=== PATIENT | female | born 1965 | race Caucasian/White ===

== ENCOUNTER → 2019-11-25 | Outpatient (CLI) | payer BC ==
--- NOTE | 2019-11-25 13:54 | Diagnostic Imaging Report ---
PROCEDURE: US right lower extremity venous. TECHNIQUE: Multiple real-time grayscale images were obtained over the right lower extremity in various projections. Additional spectral analysis and color Doppler duplex images were also obtained. INDICATION: Leg pain and swelling. COMPARISON: There are no prior studies available for comparison. FINDINGS: There is generally good blood flow and compressibility at all levels of the deep venous system. There is no evidence for a deep venous thrombosis. IMPRESSION: There is no evidence for a deep venous thrombosis of the right lower extremity. Dictated by: Dictated on workstation # [id number]
== END ==
LOC: RAD 13:09
PROVIDERS: ATTEND Nurse Practitioner Family
DX: M79.661 Pain in right lower leg (principal); M79.89 Other specified soft tissue disorders

== ENCOUNTER → 2020-07-20 | Outpatient (CLI) | payer BC ==
--- NOTE | 2020-07-20 16:31 | Diagnostic Imaging Report ---
INDICATION: Routine screening. COMPARISON: 02/06/2016 and 02/03/2015. TECHNIQUE: 2D and 3D bilateral screening mammography was performed with CAD. FINDINGS: Scattered fibroglandular densities are identified bilaterally. There are benign parenchymal and vascular calcifications bilaterally. No mass or malignant appearing microcalcifications are seen. The axillae are unremarkable. IMPRESSION: No mammographic features suspicious for malignancy are identified. ACR BI-RADS Category 2: Benign findings. Result letter will be mailed to the patient. Note: At least 10% of breast cancer is not imaged by mammography. Dictated by: Dictated on workstation # [id number]
== END ==
LOC: RAD 10:30
PROVIDERS: ATTEND Nurse Practitioner Family
DX: Z12.31 Encounter for screening mammogram for malignant neoplasm of breast (principal)
CPT/HCPCS: 77063; 77067

== ENCOUNTER → 2021-07-13 | Outpatient (CLI) | payer BC ==
--- NOTE | 2021-07-13 13:37 | Diagnostic Imaging Report ---
INDICATION: Cough. COMPARISON: None available. TECHNIQUE: Frontal and lateral radiographs of the chest dated July 13, 2021. FINDINGS: The cardiac silhouette is within normal limits in size. No significant pulmonary vascular congestion. The lungs are clear of focal pulmonary opacity. No pleural effusion. No pneumothorax. No acute osseous abnormality. IMPRESSION: No acute cardiopulmonary abnormality. Dictated by: Dictated on workstation # [id number]
== END ==
LOC: RAD 12:24
PROVIDERS: ATTEND Family Medicine
DX: R05.9 Cough, unspecified (principal)
CPT/HCPCS: 71046

== ENCOUNTER → 2021-07-27 | Outpatient (CLI) | payer BC ==
--- NOTE | 2021-07-27 09:52 | Diagnostic Imaging Report ---
INDICATION: Routine screening. COMPARISON is made with prior mammograms 07/20/2020 and 02/06/2016. 2-D and 3-D bilateral screening mammography was performed with CAD. Scattered fibroglandular densities are identified bilaterally. The parenchymal pattern is stable. No mass or malignant-appearing microcalcifications are seen. Benign parenchymal and vascular calcifications again noted. Axillae are unremarkable. IMPRESSION: BI-RADS Category 2 No mammographic features suspicious for malignancy are identified. ACR BI-RADS Category 2: Benign findings. Result letter will be mailed to the patient. Note: At least 10% of breast cancer is not imaged by mammography. Dictated by: Dictated on workstation # [id number]
== END ==
LOC: RAD 07:45
PROVIDERS: ATTEND Family Medicine
DX: Z12.31 Encounter for screening mammogram for malignant neoplasm of breast (principal)
CPT/HCPCS: 77063; 77067

== ENCOUNTER 2021-08-11 05:33 | Outpatient (RCR) | payer BC ==
[~2021-08-11] VITALS: Ht 165.1 cm; Wt 126.2 kg
[~2021-08-11 05:33] MED LIST: BUPR300T98 PO; BUSP5TAB59 PO; CETI10CA PO; CYAN500T44 PO; FOLI1TAB33 PO; MAGN100T5 PO; METF-397 PO; MTP25TSR PO; MULT-1136 PO; VITA200C60 PO
== END 2021-08-11 11:49 | disposition home or self-care (01) ==
LOC: PREOP 05:33
PROVIDERS: ATTEND Surgery
DX: Z01.812 Encounter for preprocedural laboratory examination (principal); K29.50 Unspecified chronic gastritis without bleeding; Z20.822 Contact with and (suspected) exposure to COVID-19
CPT/HCPCS: 87635

== ENCOUNTER 2021-08-14 07:27 | Day surgery (SDC) | payer BC ==
[~2021-08-14] VITALS: Ht 165.1 cm; Wt 126.2 kg
--- OUTSIDE RECORDS SUMMARY | 2021-08-14 07:31 | XMS REPORT | CCD ---
Author Author Renate Landeros Organization Marlys Miller MD, [facility] Address [address] [place] [address] Phone Care Team Providers Care Statistical Assistant Name Role Phone Marlys Miller PP Unavailable CCM Unavailable Summary Purpose Interface Exchange Insurance Providers Payer name Policy type / Coverage type Covered constitution party ID Effective Begin Date Effective End Date [facility] [id number] Unknown Family history Runs in the family Diagnosis Age At Onset Cancer Unknown Colon cancer Unknown Diabetes mellitus Type 2 Unknown Multiple myeloma Unknown Breast cancer Unknown Leukemia Unknown Mother Diagnosis Age At Onset Hypertension Unknown Arthritis Unknown Diabetes mellitus Type 2 Unknown Brother Diagnosis Age At Onset Hypertension Unknown Father Diagnosis Age At Onset Arthritis Unknown Social History Social History Element Codes Description Effective Dates Marital status Unknown Single 03/31/2019 Employment Unknown Currently employed [employer] 03/31/[address]: 776811074 Never smoker 03/31/[address]: 482153017 Never drinks alcohol 2018 Has the patient ever used illegal drugs? Unknown Has nev er used illegal drugs 03/31/2019 Allergies, Adverse Reactions, Alerts Substance Reaction Codes Entered Date Inactivated Date Status NO KNOWN DRUG ALLERGIES Unknown 03/31/2019 No Inactive Date Active Problems Condition Codes Effective Dates Condition Status Essential (primary) hypertension ICD-10: I10 ICD-9: 401.1 03/31/2019 Active Type 2 diabetes mellitus without complications ICD-10: E11.9 ICD-9: 250.00 03/31/2019 Active Change in mole ICD-10: D22.9 ICD-9: 216.9 07/13/2020 Active Restless leg syndrome ICD-10: G25.81 ICD-9: 333.94 07/13/2020 Active Generalized anxiety disorder ICD-10: F41.1 ICD-9: 300.00 03/31/2019 Active Major depressive disorder, single episode, moderate IC D-10: F32.1 ICD-9: 296.22 03/31/2019 Active Cellulitis of right leg ICD-10: L03.115 ICD-9: 682.6 11/25/2019 Active Influenza ICD-10: J11.1 ICD-9: 487.1 11/25/2019 Active Diabetes Unknown 03/31/2019 Active Other obesity due to excess calories ICD-10: E66.09 ICD-9: 278.00 03/31/2019 Active Medications Medication Codes Instructions Start Date Stop Date Status Fill Instructions buspirone 5 mg tablet RxNorm: 088268 TAKE 1 TABLET BY MOUTH THR EE TIMES DAILY 07/14/2021 07/14/2021 Inactive metoprolol succinate ER 25 mg tablet,extended release 24 hr RxNorm: 339646 TAKE 1 TABLET BY MOUTH EVERY DAY 07/14/2021 10/11/2021 Active Wellbutrin XL 300 mg 24 hr tablet, extended release RxNorm: 916466 TAKE 1 TABLET BY MOUTH EVERY DAY 07/14/2021 10/11/2021 Active Wellbutrin XL 300 mg 24 hr tablet, extended release RxNorm: 068792 TAKE 1 TABLET BY MOUTH EVERY DAY 07/14/2021 07/14/2021 Inactive metoprolol succinate ER 25 mg tablet,extended release 24 hr RxNorm: 523435 TAKE 1 TABLET BY MOUTH EVERY DAY 07/14/2021 07/14/2021 Inactive buspirone 5 mg tablet RxNorm: 011482 TAKE 1 TABLET BY MOUTH THR EE TIMES DAILY 07/14/2021 10/11/2021 Active pantoprazole 40 mg tablet,delayed release RxNorm: 455941 Take 1 Tablet(s) Oral as directed 1 tab twice daily x 3 weeks then daily thereafter 07/13/2021 12/09/2021 Active metformin 500 mg tablet RxNorm: 824847 Take 1 Tablet(s) Oral th ree times a day 07/13/2021 01/08/2022 Active metoprolol succinate ER 25 mg tablet,extended release 24 hr RxNorm: 673175 TAKE 1 TABLET BY MOUTH EVERY DAY 05/09/2021 05/09/2021 Inactive Wellbutrin XL 300 mg 24 hr tablet, extended release RxNorm: 751355 TAKE 1 TABLET BY MOUTH EVERY DAY 02/10/2021 05/10/2021 Inactive metoprolol succinate ER 25 mg tablet,extended release 24 hr RxNorm: 171348 TAKE 1 TABLET BY MOUTH EVERY DAY 02/09/2021 02/09/2021 Inactive buspirone 5 mg tablet RxNorm: 947482 TAKE 1 TABLET BY MOUTH THR EE TIMES DAILY 02/09/2021 02/09/2021 Inactive Wellbutrin XL 300 mg 24 hr tablet, extended release RxNorm: 070109 TAKE 1 TABLET BY MOUTH EVERY DAY 02/09/2021 02/09/2021 Inactive metformin 500 mg tablet RxNorm: 227226 TAKE 1 TABLET BY MOUTH T WICE DAILY 02/09/2021 07/12/2021 Inactive triamcinolone acetonide 0.025 % topical cream RxNorm: 128581 4 1 Application Topical two times a day 07/13/2020 No Stop Date Active ketoconazole 2 % topical cream RxNorm: 030264 1 Applica tion Topical two times a day 07/13/2020 No Stop Date Active metoprolol succinate ER 25 mg tablet,extended release 24 hr RxNorm: 742244 1 Tablet(s) Oral every day 01/18/2020 01/12/2021 Inactive metformin 500 mg tablet RxNorm: 042614 1 Tablet(s) Oral two jaleesa es a day 01/18/2020 01/12/2021 Inactive Wellbutrin XL 300 mg 24 hr tablet, extended release RxNorm: 782576 1 Tablet(s) Oral every day 01/18/2020 01/12/2021 Inactive buspirone 5 mg tablet RxNorm: 803032 1 Tablet(s) Oral three jaleesa es a day 01/18/2020 01/12/2021 Inactive metoprolol succinate ER 25 mg tablet,extended release 24 hr RxNorm: 104022 1 Tablet(s) Oral every day 01/13/2020 01/17/2020 Inactive metformin 500 mg tablet RxNorm: 400251 1 Tablet(s) Oral two jaleesa es a day 01/13/2020 01/17/2020 Inactive Wellbutrin XL 300 mg 24 hr tablet, extended release RxNorm: 143888 1 Tablet(s) Oral every day 01/13/2020 01/17/2020 Inactive buspirone 5 mg tablet RxNorm: 516109 1 Tablet(s) Oral three jaleesa es a day 01/13/2020 01/17/2020 Inactive doxycycline hyclate 100 mg capsule RxNorm: 5567719 1 Cap mirta(s) Oral two times a day 11/25/2019 12/05/2019 Inactive Tamiflu 75 mg capsule RxNorm: 489476 1 Capsule(s) Oral two time s a day 11/25/2019 11/30/2019 Inactive triamcinolone acetonide 0.025 % topical cream RxNorm: 705775 4 1 Application Topical two times a day 07/14/2019 01/12/2020 Inactive buspirone 5 mg tablet RxNorm: 371328 1 Tablet(s) Oral three jaleesa es a day 07/14/2019 08/13/2019 Inactive Wellbutrin XL 300 mg 24 hr tablet, extended release RxNorm: 853991 1 Tablet(s) Oral every day 07/14/2019 01/12/2020 Inactive metformin 500 mg tablet RxNorm: 605908 1 Tablet(s) Oral two jaleesa es a day 07/14/2019 01/12/2020 Inactive metoprolol succinate ER 25 mg tablet,extended release 24 hr RxNorm: 000629 1 Tablet(s) PO daily 04/28/2019 01/12/2020 Inactive metformin 500 mg tablet RxNorm: 375966 1 Tablet(s) PO daily 019 07/13/2019 Inactive Wellbutrin SR 150 mg tablet, 12 hr sustained-release RxNorm: 556942 1 Tablet(s) PO BID 04/28/2019 07/10/2019 Inactive bupropion HCl 75 mg tablet RxNorm: 453673 1 Tablet(s) PO BID 201804/21/2019 Inactive B12 sublingual RxNorm: 10013 sublingual 03/31/2019 Active Vitamin D (with calcium) oral RxNorm: 175394 oral 03/31/2019 Active Multivitamin 50 Plus oral RxNorm: 72304 oral 03/31/2019 Active magnesium RxNorm: 1 Tablet(s) PO daily 03/31/2019 Active biotin oral RxNorm: 1588 oral 03/31/2019 Active Medication Administered No Medication Administered data Immunizations No Immunization data Results Observation Observation Code Item Item Code Result Date S ervice Location Comp Metabolic Rws765 NA 138 mEq/L 07/07/2021 Unkn own Comp Metabolic Zvt146 K 4.1 mEq/L 07/07/2021 Unkn own Comp Metabolic Vsb921 CL 101 mEq/L 07/07/2021 Unkn own Comp Metabolic Wci574 CO2 29.0 mEq/L 07/07/2021 Unk nown Comp Metabolic Btx966 ANION GAP 12 07/07/2021 Unkn own Comp Metabolic Jiy215 GLUCOSE 171 mg/dL 07/07/2021 Unkn own Comp Metabolic Azs320 Creat 0.9 mg/dL 07/07/2021 Unkn own Comp Metabolic Uwr022 eGFR 70 ml/min/1.73m2 07/07/20 21 Unknown Comp Metabolic Iuq764 BUN 13 mg/dL 07/07/2021 Unkn own Comp Metabolic Yhf180 B/C Ratio 14.8 Ratio 07/07/2021 Unk nown Comp Metabolic Zou968 CALCIUM 9.0 mg/dL 07/07/2021 Unkn own Comp Metabolic Kcw209 ALK PHOS 102 U/L 07/07/2021 Unkn own Comp Metabolic Wfu082 AST(SGOT) 20 U/L 07/07/2021 Unkn own Comp Metabolic Zvu640 ALT(SGPT) 18 U/L 07/07/2021 Unkn own Comp Metabolic Erm360 BILI T 0.7 mg/dL 07/07/2021 Unkn own Comp Metabolic Lhr517 ALBUMIN 4.1 g/dL 07/07/2021 Unkn own Comp Metabolic Cab807 TPRO 6.7 g/dL 07/07/2021 Unkn own Comp Metabolic Cie644 GLOB 2.6 g/dL 07/07/2021 Unkn own Comp Metabolic Jgi842 A/G Ratio 1.6 Ratio 07/07/2021 Unkn own Comp Metabolic Pff215 Osmo 280 mOsmo 07/07/2021 Unkn own Cbc With Differential Ord2 WBC 6.42 K/ul 07/06/20 Unknown Cbc With Differential Ord2 RBC 4.63 M/ul 07/06/20 21 Unknown Cbc With Differential Ord2 HGB 13.2 g/dl 07/06/20 21 Unknown Cbc With Differential Ord2 HCT 40.9 % 07/06/20 Unknown Cbc With Differential Ord2 Neut% 61.9 % 07/06/20 21 Unknown Cbc With Differential Ord2 MCV 88.3 fl 07/06/20 21 Unknown Cbc With Differential Ord2 Lymph% 29.0 % 07/06/20 Unknown Cbc With Differential Ord2 MCH 28.5 pg 07/06/20 Unknown Cbc With Differential Ord2 [place]% 6.2 % 07/06/20 Unknown Cbc With Differential Ord2 MCHC 32.3 pg 07/06/20 Unknown Cbc With Differential Ord2 Eos% 2.6 % 07/06/20 Unknown Cbc With Differential Ord2 Baso% 0.3 % 07/06/20 Unknown Cbc With Differential Ord2 PLT 214 K/ul 07/06/20 Unknown Cbc With Differential Ord2 Neut ABS# 3.97 K/ul 07/06/20 Unknown Cbc With Differential Ord2 RDW 13.4 % 07/06/20 Unknown Cbc With Differential Ord2 Lymph ABS# 1.86 K/ul 021 Unknown Cbc With Differential Ord2 [place] ABS# 0.4 K/ul 07/06/20 Unknown Cbc With Differential Ord2 Eos ABS# 0.2 K/ul 07/06/20 Unknown Cbc With Differential Ord2 Baso ABS# 0.0 K/ul 07/06/20 Unknown Lipid Ord30 CHOL 212 mg/dL 07/06/2021 Unknown Lipid Ord30 HDL 58.0 mg/dl 07/06/2021 Unknown Lipid Ord30 TRIG 144 mg/dL 07/06/2021 Unknown Lipid Ord30 LDL 125 mg/dL 07/06/2021 Unknown Lipid Ord30 C/HDL 3.7 Ratio 07/06/2021 Unknown Tsh Ord6 TSH (3rd IS) 3.85 uIU/mL 07/06/2021 Unkn own %Hba1C Xeu449 % HbA1c 89106-8 8.1 % 07/06/2021 Unknown %Hba1C Sto228 Gluc Ave 186 mg/dL 07/06/2021 Unknown %Hba1C Fvv059 % HbA1c 52546-4 6.6 % 07/07/2020 Unknown %Hba1C Lsc874 Gluc Ave 143 mg/dL 07/07/2020 Unknown Comp Metabolic Mus905 NA 138 mEq/L 07/07/2020 Unkn own Comp Metabolic Tsa794 K 3.9 mEq/L 07/07/2020 Unkn own Comp Metabolic Kme415 CL 101 mEq/L 07/07/2020 Unkn own Comp Metabolic Xty846 CO2 29.0 mEq/L 07/07/2020 Unk nown Comp Metabolic Obk070 ANION GAP 12 07/07/2020 Unkn own Comp Metabolic Awt769 GLUCOSE 127 mg/dL 07/07/2020 Unkn own Comp Metabolic Jel367 Creat 0.8 mg/dL 07/07/2020 Unkn own Comp Metabolic Vxz367 eGFR 75 ml/min/1.73m2 07/07/20 20 Unknown Comp Metabolic Wlu615 BUN 12 mg/dL 07/07/2020 Unkn own Comp Metabolic Imk012 B/C Ratio 14.5 Ratio 07/07/2020 Unk nown Comp Metabolic Ugb711 CALCIUM 9.7 mg/dL 07/07/2020 Unkn own Comp Metabolic Tje494 ALK PHOS 103 U/L 07/07/2020 Unkn own Comp Metabolic Ith562 AST(SGOT) 16 U/L 07/07/2020 Unkn own Comp Metabolic Wdj656 ALT(SGPT) 16 U/L 07/07/2020 Unkn own Comp Metabolic Rzk631 BILI T 0.9 mg/dL 07/07/2020 Unkn own Comp Metabolic Nuf276 ALBUMIN 4.0 g/dL 07/07/2020 Unkn own Comp Metabolic Stp811 TPRO 6.6 g/dL 07/07/2020 Unkn own Comp Metabolic For352 GLOB 2.6 g/dL 07/07/2020 Unkn own Comp Metabolic Fsp346 A/G Ratio 1.5 Ratio 07/07/2020 Unkn own Comp Metabolic Tle847 Osmo 277 mOsmo 07/07/2020 Unkn own Tsh Ord6 TSH (3rd IS) 2.43 uIU/mL 07/07/2020 Unkn own Lipid Ord30 CHOL 213 mg/dL 07/07/2020 Unknown Lipid Ord30 HDL 61.0 mg/dl 07/07/2020 Unknown Lipid Ord30 TRIG 134 mg/dL 07/07/2020 Unknown Lipid Ord30 LDL 125 mg/dL 07/07/2020 Unknown Lipid Ord30 C/HDL 3.5 Ratio 07/07/2020 Unknown Cbc With Differential Ord2 WBC 5.38 K/ul 07/07/20 Unknown Cbc With Differential Ord2 RBC 4.51 M/ul 07/07/20 Unknown Cbc With Differential Ord2 HGB 13.6 g/dl 07/07/20 Unknown Cbc With Differential Ord2 Neut% 63.0 % 07/07/20 Unknown Cbc With Differential Ord2 HCT 41.1 % 07/07/20 Unknown Cbc With Differential Ord2 MCV 91.1 fl 07/07/20 Unknown Cbc With Differential Ord2 Lymph% 30.1 % 07/07/20 Unknown Cbc With Differential Ord2 MCH 30.2 pg 07/07/20 Unknown Cbc With Differential Ord2 [place]% 4.8 % 07/07/20 Unknown Cbc With Differential Ord2 MCHC 33.1 pg 07/07/20 Unknown Cbc With Differential Ord2 Eos% 1.9 % 07/07/20 Unknown Cbc With Differential Ord2 PLT 192 K/ul 07/07/20 Unknown Cbc With Differential Ord2 Baso% 0.2 % 07/07/20 Unknown Cbc With Differential Ord2 Neut ABS# 3.39 K/ul 07/07/20 Unknown Cbc With Differential Ord2 RDW 12.7 % 07/07/20 Unknown Cbc With Differential Ord2 Lymph ABS# 1.62 K/ul 020 Unknown Cbc With Differential Ord2 [place] ABS# 0.3 K/ul 07/07/20 Unknown Cbc With Differential Ord2 Eos ABS# 0.1 K/ul 07/07/20 Unknown Cbc With Differential Ord2 Baso ABS# 0.0 K/ul 07/07/20 Unknown Comp Metabolic Muo844 NA 140 mEq/L 07/07/2019 Unkn own Comp Metabolic Mjh242 K 3.9 mEq/L 07/07/2019 Unkn own Comp Metabolic Dfz925 CL 102 mEq/L 07/07/2019 Unkn own Comp Metabolic Gol221 CO2 30.0 mEq/L 07/07/2019 Unk nown Comp Metabolic Yiq224 ANION GAP 12 07/07/2019 Unkn own Comp Metabolic Vrk766 GLUCOSE 150 mg/dL 07/07/2019 Unkn own Comp Metabolic Ape415 Creat 0.8 mg/dL 07/07/2019 Unkn own Comp Metabolic Oox314 eGFR 79 ml/min/1.73m2 07/07/20 19 Unknown Comp Metabolic Pxk614 BUN 12 mg/dL 07/07/2019 Unkn own Comp Metabolic Ixi590 B/C Ratio 15.0 Ratio 07/07/2019 Unk nown Comp Metabolic Ndy932 CALCIUM 9.4 mg/dL 07/07/2019 Unkn own Comp Metabolic Bff219 ALK PHOS 114 U/L 07/07/2019 Unkn own Comp Metabolic Pvb098 AST(SGOT) 20 U/L 07/07/2019 Unkn own Comp Metabolic Njh521 ALT(SGPT) 18 U/L 07/07/2019 Unkn own Comp Metabolic Vgt118 BILI T 1.0 mg/dL 07/07/2019 Unkn own Comp Metabolic Rnz237 ALBUMIN 4.0 g/dL 07/07/2019 Unkn own Comp Metabolic Hat371 TPRO 6.5 g/dL 07/07/2019 Unkn own Comp Metabolic Mxh915 GLOB 2.5 g/dL 07/07/2019 Unkn own Comp Metabolic Jxi660 A/G Ratio 1.6 Ratio 07/07/2019 Unkn own Comp Metabolic Jzg294 Osmo 282 mOsmo 07/07/2019 Unkn own %Hba1C Ghu918 % HbA1c 48314-1 7.4 % 07/07/2019 Unknown %Hba1C Pyh493 Gluc Ave 166 mg/dL 07/07/2019 Unknown Cbc With Differential Ord2 WBC 5.82 K/ul 03/31/20 19 Unknown Cbc With Differential Ord2 RBC 4.69 M/ul 03/31/20 19 Unknown Cbc With Differential Ord2 HGB 13.9 g/dl 03/31/20 19 Unknown Cbc With Differential Ord2 HCT 41.8 % 03/31/20 19 Unknown Cbc With Differential Ord2 Neut% 64.5 % 03/31/20 19 Unknown Cbc With Differential Ord2 MCV 89.1 fl 03/31/20 19 Unknown Cbc With Differential Ord2 Lymph% 27.3 % 03/31/20 19 Unknown Cbc With Differential Ord2 MCH 29.6 pg 03/31/20 19 Unknown Cbc With Differential Ord2 [place]% 5.8 % 03/31/20 19 Unknown Cbc With Differential Ord2 MCHC 33.3 pg 03/31/20 19 Unknown Cbc With Differential Ord2 Eos% 2.2 % 03/31/20 19 Unknown Cbc With Differential Ord2 PLT 193 K/ul 03/31/20 19 Unknown Cbc With Differential Ord2 Baso% 0.2 % 03/31/20 19 Unknown Cbc With Differential Ord2 RDW 13.4 % 03/31/20 19 Unknown Cbc With Differential Ord2 Neut ABS# 3.75 K/ul 03/31/20 19 Unknown Cbc With Differential Ord2 Lymph ABS# 1.59 K/ul 019 Unknown Cbc With Differential Ord2 [place] ABS# 0.3 K/ul 03/31/20 19 Unknown Cbc With Differential Ord2 Eos ABS# 0.1 K/ul 03/31/20 19 Unknown Cbc With Differential Ord2 Baso ABS# 0.0 K/ul 03/31/20 19 Unknown Lipid Ord30 CHOL 188 mg/dL 03/31/2019 Unknown Lipid Ord30 HDL 57.0 mg/dl 03/31/2019 Unknown Lipid Ord30 TRIG 137 mg/dL 03/31/2019 Unknown Lipid Ord30 LDL 104 mg/dL 03/31/2019 Unknown Lipid Ord30 C/HDL 3.3 Ratio 03/31/2019 Unknown Tsh Ord6 TSH (3rd IS) 2.93 uIU/mL 03/31/2019 Unkn own Comp Metabolic Rea525 NA 138 mEq/L 03/31/2019 Unkn own Comp Metabolic Fte909 K 4.1 mEq/L 03/31/2019 Unkn own Comp Metabolic Nsp364 CL 100 mEq/L 03/31/2019 Unkn own Comp Metabolic Hxo928 CO2 31.0 mEq/L 03/31/2019 Unk nown Comp Metabolic Gts019 ANION GAP 11 03/31/2019 Unkn own Comp Metabolic Cny402 GLUCOSE 157 mg/dL 03/31/2019 Unkn own Comp Metabolic Buo336 Creat 0.7 mg/dL 03/31/2019 Unkn own Comp Metabolic Nkq104 eGFR 89 ml/min/1.73m2 03/31/20 19 Unknown Comp Metabolic Kbg258 BUN 11 mg/dL 03/31/2019 Unkn own Comp Metabolic Nzf442 B/C Ratio 15.3 Ratio 03/31/2019 Unk nown Comp Metabolic Ezj259 CALCIUM 9.4 mg/dL 03/31/2019 Unkn own Comp Metabolic Krx011 ALK PHOS 113 U/L 03/31/2019 Unkn own Comp Metabolic Mrp395 AST(SGOT) 19 U/L 03/31/2019 Unkn own Comp Metabolic Sax498 ALT(SGPT) 19 U/L 03/31/2019 Unkn own Comp Metabolic Qkk141 BILI T 1.1 mg/dL 03/31/2019 Unkn own Comp Metabolic Ril714 ALBUMIN 4.0 g/dL 03/31/2019 Unkn own Comp Metabolic Nqa377 TPRO 6.5 g/dL 03/31/2019 Unkn own Comp Metabolic Prn477 GLOB 2.5 g/dL 03/31/2019 Unkn own Comp Metabolic Cfu737 A/G Ratio 1.6 Ratio 03/31/2019 Unkn own Comp Metabolic Tbj205 Osmo 278 mOsmo 03/31/2019 Unkn own %Hba1C Xvo407 % HbA1c 26872-8 7.9 % 03/31/2019 Unknown %Hba1C Rmw716 Gluc Ave 180 mg/dL 03/31/2019 Unknown Procedures No Procedures data Vital Signs Date Vital 07/13/2020 Blood Pressure 1: 142/88 Code: 8480-6 BMI: 43.9 Code: 76650-0 Heart Rate 1: 86 bpm Height: 5'5" Code: 8302-2 SpO2: 98% Temperature: 3 6.9 (C) / 98.4 (F) Weight: 264 lbs Code: 87216-2 01/13/2020 Blood Pressure 1: 124/80 Code: 8480-6 BMI: 43.9 Code: 96281-5 Heart Rate 1: 75 bpm Height: 5'5" Code: 8302-2 SpO2: 96% Temperature: 3 6.6 (C) / 97.8 (F) Weight: 264 lbs Code: 30637-8 11/25/2019 Blood Pressure 1: 150/78 Code: 8480-6 BMI: 44.6 Code: 68137-4 Heart Rate 1: 80 bpm Height: 5'5" Code: 8302-2 SpO2: 95% Temperature: 3 6.6 (C) / 97.8 (F) Weight: 268 lbs Code: 98037-8 07/14/2019 Blood Pressure 1: 146/82 Code: 8480-6 BMI: 46.6 Code: 17501-4 Heart Rate 1: 75 bpm Height: 5'5" Code: 8302-2 SpO2: 97% Weight: 280 lb s Code: 11670-5 04/28/2019 Blood Pressure 1: 142/82 Code: 8480-6 BMI: 46.6 Code: 02414-3 Heart Rate 1: 88 bpm Height: 5'5" Code: 8302-2 SpO2: 97% Weight: 280 lb s Code: 66241-9 03/31/2019 Blood Pressure 1: 144/90 Code: 8480-6 BMI: 46.9 Code: 95752-4 Heart Rate 1: 82 bpm Height: 5'5" Code: 8302-2 SpO2: 98% Weight: 282 lb s Code: 49376-3 Functional Status No Functional Status data Reason For Visit Reason For Visit Effective Dates Notes depression 07/13/2020 depression 01/13/2020 fever 11/25/2019 depression 07/14/2019 depression 04/28/2019 depression 03/31/2019 Encounters Encounter Performer Location Codes Date 25510 EST. PATIENT, LEVEL IV Diagnosis: Essential (primary) hypertension[ICD10: I10] Diagnosis: Type 2 diabetes mellitus without complications[ICD10: E11.9] Diagnosis: Change in mole[ICD10: D22.9] Diagnosis: Restless leg syndrome[ICD10: G25.81] Noemí Miller MD, [facility] CPT-4: 90006 07/13/2020 17187 EST. PATIENT, LEVEL III Diagnosis: Generalized anxiety disorder[ICD10: F41.1] Diagnosis: Major depressive disorder, single episode, moderate[ICD10: F32.1] Diagnosis: Essential (primary) hypertension[ICD10: I10] Diagnosis: Type 2 diabetes mellitus without complications[ICD10: E11.9] Noemí Miller MD, [facility] CPT-4: 38255 01/13/2020 54557 EST. PATIENT, LEVEL III Diagnosis: Influenza[ICD10: J11.1] Diagnosis: Cellulitis of right leg[ICD10: L03.115] Noemí Miller MD, [facility] CPT-4: 79643 11/25/2019 17686 EST. PATIENT, LEVEL IV Diagnosis: Generalized anxiety disorder[ICD10: F41.1] Diagnosis: Major depressive disorder, single episode, moderate[ICD10: F32.1] Diagnosis: Type 2 diabetes mellitus without complications[ICD10: E11.9] Diagnosis: Essential (primary) hypertension[ICD10: I10] Noemí Miller MD, [facility] CPT-4: 51258 07/14/2019 50445 EST. PATIENT, LEVEL IV Diagnosis: Generalized anxiety disorder[ICD10: F41.1] Diagnosis: Major depressive disorder, single episode, moderate[ICD10: F32.1] Diagnosis: Type 2 diabetes mellitus without complications[ICD10: E11.9] Diagnosis: Essential (primary) hypertension[ICD10: I10] Noemí Miller MD, [facility] CPT-4: 19099 04/28/2019 OFFICE VISIT, NEW - LEVEL 4 Diagnosis: Essential (primary) hypertension[ICD10: I10] Diagnosis: Type 2 diabetes mellitus without complications[ICD10: E11.9] Diagnosis: Generalized anxiety disorder[ICD10: F41.1] Diagnosis: Major depressive disorder, single episode, moderate[ICD10: F32.1] Diagnosis: Other obesity due to excess calories[ICD10: E66.09] Noemí Miller MD, [facility] CPT-4: 29678 03/31/2019 Plan of Care Planned Activity Notes Codes Status Date Appointment: [id number] ([facility] min) Moderate 07/13/2021 Patient Education: Patient Medication Summary Completed 07/05/2021 Visit Plan: Restless Leg Syndrome - unco ntrolled symptoms - I have recommended pt to start on a low dose of iron two to three times a week - to take with orange juice. Pt is to alert me if the symptoms do not improve and we will start on a medication such as mirapex or requip. Changing mole - will refer to dermatology - pt is notify clinic with any changes, questions, or concerns. Hypertension - well controlled - continue with current medications, continue with no added salt diet. Pt has been encouraged to exercise daily. The pt has been advised to call the office if there are any acute concerns about change in blood pressure readings at home. Diabetes Mellitus - controlled - per recent FSBS reports. I have recommended for the patient to have follow up labs prior to the next office visit. The patient has been instructed to continue with current medications as previously directed, continue with regular FSBS monitoring to assure continued control of diabetes. Pt to call for any acute concerns, complaints, or if the blood glucose readings are starting to become less controlled. 07/13/2020 Appointment: [id number] ([facility] Complex 07/13/2020 Patient Education: Patient Medication Summary Completed 07/13/2020 Patient Education: Diabetes Completed 07/13/2020 Patient Education: Patient Medication Summary Completed 07/07/2020 Visit Plan: Chronic Depression and anxie ty - the pt has symptoms of chronic anxiety and depression that have been fairly well controlled since the last office visit. The pt has expected periods of exacerbation with abatement of the symptoms with change in situational exposure. No change in current medications. Hypertension - well controlled - continue with current medications, continue with no added salt diet. Pt has been encouraged to exercise daily. The pt has been advised to call the office if there are any acute concerns about change in blood pressure readings at home. Diabetes Mellitus - controlled - per recent FSBS reports. I have recommended for the patient to have follow up labs prior to the next office visit. The patient has been instructed to continue with current medications as previously directed, continue with regular FSBS monitoring to assure continued control of diabetes. Pt to call for any acute concerns, complaints, or if the blood glucose readings are starting to become less controlled. 01/13/2020 Appointment: Noemí Landeros WPtel: [phone] [id number] (30 min) Complex 01/13/2020 Patient Education: Patient Medication Summary Completed 01/13/2020 Patient Education: Depression Completed 01/13/2020 Patient Education: Diabetes Completed 01/13/2020 Visit Plan: Influenza - pt started on ta miflu - pt to start on anti- inflammatories, tylenol and monitor symptoms. Pt to call if not improving. Pt to alert any close contacts as to illness. Cellulitis - continue with oral antibiotics as previously directed, return to clinic as previously directed, call for acute change in symptoms, worsening redness, warmth, discharge. 11/25/2019 Appointment: Noemí Landeros WPtel: [phone] [id number] (30 min) Complex 11/25/2019 Patient Education: Patient Medication Summary Completed 11/25/2019 Care Plan: VASCULAR STUDY [facility] : [address]- 0 Pending 11/25/2019 Visit Plan: Chronic Depression and anxie ty - the pt has symptoms of chronic anxiety and depression that have been fairly well controlled since the last office visit. The pt has expected periods of exacerbation with abatement of the symptoms with change in situational exposure. No change in current medications. Hypertension - well controlled - continue with current medications, continue with no added salt diet. Pt has been encouraged to exercise daily. The pt has been advised to call the office if there are any acute concerns about change in blood pressure readings at home. Diabetes Mellitus - I have recommended for the patient to have follow up labs prior to the next office visit. The patient has been instructed to continue with current medications as previously directed, continue with regular FSBS monitoring to assure continued control of diabetes. Pt to call for any acute concerns, complaints, or if the blood glucose readings are starting to become less controlled. I have recommended for the patient to fo llow more strictly to the diabetic diet as discussed in clinic to allow for greater blood glucose control. 07/14/2019 [id number] [facility] 07/14/2019 Patient Education: Patient Medication Summary Completed 07/14/2019 Patient Education: Depression Completed 07/14/2019 Patient Education: Diabetes Completed 07/14/2019 Visit Plan: Chronic Depression and anxie ty - the pt has symptoms of chronic anxiety and depression that have been fairly well controlled since the last office visit. The pt has expected periods of exacerbation with abatement of the symptoms with change in situational exposure. Hypertension - uncontrolled - the patient's medications have been modified as documented in the visit note. The patient has been counseled to cut back on salt in diet for a no added salt diet, low fat diet, start an exercise program with low weight bearing exercises and higher aerobic activity for heart health. The patient is to check blood pressure readings as an outpatient and either fax, call, or email the readings to the office next week for practitioner to review. The pt is to call for acute concerns. Diabetes Mellitus - Uncontrolled - per recent FSBS reports. I have recommended for the patient to have follow up labs prior to the next office visit. The patient has been instructed to continue with current medications as previously directed, continue with regular FSBS monitoring to assure continued control of diabetes. Pt to call for any acute concerns, complaints, or if the blood glucose readings are starting to become less controlled. I have recommended for the patient to follow more strictly to the diabetic diet as discussed in clinic to allow for greater blood glucose control. 04/28/2019 App[facility]ment: [id number] [facility] 04/28/2019 Patient Education: Patient Medication Summary Completed 04/28/2019 Patient Education: Diabetes Completed 04/28/2019 Patient Education: Depression Completed 04/28/2019 Visit Plan: Anxiety - the patient has un controlled anxiety and will benefit from an SSRI on a daily basis to attempt control of the symptoms of anxiety (tachycardia, overwhelming sensations, stress, insomnia, etc). Pt is aware of the risks and benefits of treatment with the above medications. Depression - uncontrolled - Pt has been counseled about the diagnosis of depression, the potential causes, and risks associated with the diagnosis. The pt denies suicidal ideation, or plans. The patient has been counseled about treatment options, and understands the risks associated with treatment of depression, as well as the risks associated with NOT treating the depression. I believe the pt will benefit from medical intervention and an antidepressant has been appropriately prescribed for this patient. Obesity - chronic issue with this patient. The pt has been counseled about diet changes, calorie restriction, and need to exercise. Pt will RTC in one month for weight check. Hypertension - The patient has been counseled to cut back on salt in diet for a no added salt diet, low fat diet, start an exercise program with low weight bearing exercises and higher aerobic activity for heart health. The patient is to check blood pressure readings as an outpatient and either fax, call, or email the readings to the office next week for practitioner to review. The pt is to call for acute concerns. cough, Esophageal Reflux - the patient has been counseled against excessive intake of caffeine, spicy foods, peppermint, and cinnamon - all of which can exacerbate esophageal reflux. The patient is to take medications as prescribed and call the office if the symptoms are not improving. Allergies - chronic - recommended pt to use allergy medication as prescribed. Pt has been counseled as to the appropriate use of the medication. Pt to call if allergy symptoms are not controlled with the medication. If using nasal spray, instructions as follows: Nasal spray- use twice daily, one spray per nostril twice daily, after 30 minutes, rinse out nose with saline spray.. Use opposite hand per nostril to spray in the nasal steroid allergy spray. Diabetes Mellitus - The patient has been instructed to continue with current medications as p reviously directed, continue with regular FSBS monitoring to assure continued control of diabetes. Pt to call for any acute concerns, complaints, or if the blood glucose readings are starting to become less controlled. I have recommended for the patient to follow more strictly to the diabetic diet as discussed in clinic to allow for greater blood glucose control. 03/31/2019 Appointment: [facility]em[id number] [facility] 03/31/2019 Patient Education: Patient Medication Summary Completed 03/31/2019 Patient Education: Diabetes Completed 03/31/2019 Patient Education: Depression Completed 03/31/2019 Patient Education: Obesity Completed 0 03/31/2019 Instructions Comment will send orders for mammogram - call to schedule - at [facility] Get some magnesium and folate over the counter to see if it helps with cramps - you an also try tonic water if no improvement we will consider restless leg medicine refer to Dr. Page will send steroid cream and fungal cream to pharmacy. Restless Leg Syndrome - uncontrolled symptoms - I have recommended pt to start on a low dose of iron two to three times a week - to take with orange juice. Pt is to alert me if the symptoms do not improve and we will start on a medication such as mirapex or requip. Changing mole - will refer to dermatology - pt is notify clinic with any changes, questions, or concerns. Hypertension - well controlled - continue with current medications, continue with no added salt diet. Pt has been encouraged to exercise daily. The pt has been advised to call the office if there are any acute concerns about change in blood pressure readings at home. Diabetes Mellitus - controlled - per recent FSBS reports. I have recommended for the patient to have follow up labs prior to the next office visit. The patient has been instructed to continue with current medications as previously directed, continue with regular FSBS monitoring to assure continued control of diabetes. Pt to call for any acute concerns, complaints, or if the blood glucose readings are starting to become less controlled. . Chronic Depression and anxiety - the p t has symptoms of chronic anxiety and depression that have been fairly well controlled since the last office visit. The pt has expected periods of exacerbation with abatement of the symptoms with change in situational exposure. No change in current medications. Hypertension - well controlled - continue with current medications, continue with no added salt diet. Pt has been encouraged to exercise daily. The pt has been advised to call the office if there are any acute concerns about change in blood pressure readings at home. Diabetes Mellitus - controlled - per recent FSBS reports. I have recommended for the patient to have follow up labs prior to the next office visit. The patient has been instructed to continue with current medications as previously directed, continue with regular FSBS monitoring to assure continued control of diabetes. Pt to call for any acute concerns, complaints, or if the blood glucose readings are starting to become less controlled. will check DVT ultrasound to make sure t here is no clot will start you on doxycycline and tamiflu let me know if you are not feeling any better or with any changes, questions or concerns. . Influenza - pt started on tamiflu - pt to start on anti- inflammatories, tylenol and monitor symptoms. Pt to call if not improving. Pt to alert any close contacts as to illness. Cellulitis - continue with oral antibiotics as previously directed, return to clinic as previously directed, call for acute change in symptoms, worsening redness, warmth, discharge. . Chronic Depression and anxiety - the p t has symptoms of chronic anxiety and depression that have been fairly well controlled since the last office visit. The pt has expected periods of exacerbation with abatement of the symptoms with change in situational exposure. No change in current medications. Hypertension - well controlled - continue with current medications, continue with no added salt diet. Pt has been encouraged to exercise daily. The pt has been advised to call the office if there are any acute concerns about change in blood pressure readings at home. Diabetes Mellitus - I have recommended for the patient to have follow up labs prior to the next office visit. The patient has been instructed to continue with current medications as previously directed, continue with regular FSBS monitoring to assure continued control of diabetes. Pt to call for any acute concerns, complaints, or if the blood glucose readings are starting to become less controlled. I have recommended for the patient to follow more strictly to the diabetic diet as discussed in clinic to allow for greater blood glucose control. . Chronic Depression and anxiety - the p t has symptoms of chronic anxiety and depression that have been fairly well controlled since the last office visit. The pt has expected periods of exacerbation with abatement of the symptoms with change in situational exposure. Hypertension - uncontrolled - the patient's medications have been modified as documented in the visit note. The patient has been counseled to cut back on salt in diet for a no added salt diet, low fat diet, start an exercise program with low weight bearing exercises and higher aerobic activity for heart health. The patient is to check blood pressure readings as an outpatient and either fax, call, or email the readings to the office next week for practitioner to review. The pt is to call for acute concerns. Diabetes Mellitus - Uncontrolled - per recent FSBS reports. I have recommended for the patient to have follow up labs prior to the next office visit. The patient has been instructed to continue with current medications as previously directed, continue with regular FSBS monitoring to assure continued control of diabetes. Pt to call for any acute concerns, complaints, or if the blood glucose readings are starting to become less controlled. I have recommended for the patient to follow more strictly to the diabetic diet as discussed in clinic to allow for greater blood glucose control. . Anxiety - the patient has uncontrolled anxiety and will benefit from an SSRI on a daily basis to attempt control of the symptoms of anxiety (tachycardia, overwhelming sensations, stress, insomnia, etc). Pt is aware of the risks and benefits of treatment with the above medications. Depression - uncontrolled - Pt has been counseled about the diagnosis of depression, the potential causes, and risks associated with the diagnosis. The pt denies suicidal ideation, or plans. The patient has been counseled about treatment options, and understands the risks associated with treatment of depression, as well as the risks associated with NOT treating the depression. I believe the pt will benefit from medical intervention and an antidepressant has been appropriately prescribed for this patient. Obesity - chronic issue with this patient. The pt has been counseled about diet changes, calorie restriction, and need to exercise. Pt will RTC in one month for weight check. Hypertension - The patient has been counseled to cut back on salt in diet for a no added salt diet, low fat diet, start an exercise program with low weight bearing exercises and higher aerobic activity for heart health. The patient is to check blood pressure readings as an outpatient and either fax, call, or email the readings to the office next week for practitioner to review. The pt is to call for acute concerns. cough, Esophageal Reflux - the patient has been counseled against excessive intake of caffeine, spicy foods, peppermint, and cinnamon - all of which can exacerbate esophageal reflux. The patient is to take medications as prescribed and call the office if the symptoms are not improving. Allergies - chronic - recommended pt to use allergy medication as prescribed. Pt has been counseled as to the appropriate use of the medication. Pt to call if allergy symptoms are not controlled with the medication. If using nasal spray, instructions as follows: Nasal spray- use twice daily, one spray per nostril twice daily, after 30 minutes, rinse out nose with saline spray.. Use opposite hand per nostril to spray in the nasal steroid allergy spray. Diabetes Mellitus - The patient has been instructed to continue with current medications as previously directed, continue with regular FSBS monitoring to assure continued control of diabetes. Pt to call for any acute concerns, complaints, or if the blood glucose readings are starting to become less controlled. I have recommended for the patient to follow more strictly to the diabetic diet as discussed in clinic to allow for greater blood glucose control. Medical Equipment No Medical Equipment data Health Concerns Section Health Concerns data not found Goals Section Goals data not found Interventions Section Interventions data not found Health Status Evaluations/Outcomes Section Health Status Evaluations/Outcomes data not found Advance Directives No Advance Directive data
--- OUTSIDE RECORDS SUMMARY | 2021-08-14 07:31 | XMS REPORT | Clinical Summary ---
Author Author [facility] Organization [facility] Address Unknown Phone Unavailable Care Team Providers Care Senior Supply Chain Analyst Name Role Phone Anna Mazariegos RN Unavailable Unavailable Wayne Mcdonough MD PCP Source Comments Some departments are not documenting in the electronic medical record. If you d o not see the information that you expected, contact Release of Information in [facility] Information Management department at [phone] for further assistan ce in locating additional records.[facility] Allergies Not on File Medications End Date Status Medication Sig Dispensed Refills Start Date Active MULTIVITAMIN PO Take by 0 mouth. Active pyridoxine (VITAMIN B-6) Take 100 mg 0 100 mg PO tablet by mouth daily. Active other medication 1 Dose. 0 Active METFORMIN HCL (METFORMIN Take by 0 PO) mouth. Active BUPROPION HCL (WELLBUTRIN Take by 0 PO) mouth. Active AMILORIDE HCL (AMILORIDE Take by 0 PO) mouth. Active CALCIUM PO Take by 0 mouth. Active CHOLECALCIFEROL (VITAMIN Take by 0 D3) (D-3-5 PO) mouth. Active ondansetron (ZOFRAN) 4 mg Take 1 Tab by 10 Tab 0 PO tablet mouth every 8 1 hours as needed for Nausea. Active Problems Not on file Medical History Medical History Date Comments Hypertension DM (diabetes mellitus) (HCC) Social History Date Tobacco Use Types Packs/Day Years Used Never Smoker Comments Alcohol Use Standard Drinks/Week No 0 (1 standard drink = 0.6 o z pure alcohol) Sex Assigned at Date Recorded Not on file Last Filed Vital Signs Reading Time Taken Comments Vital Sign 132/81 02/06/2011 5:06 AM CDT Blood Pressure 79 02/06/2011 5:06 AM CDT Pulse 36.7 C (98.1 F) 02/05/2011 11:05 PM CDT Temperature - - Respiratory Rate 92% 02/06/2011 5:06 AM CDT Oxygen Saturation - - Inhaled Oxygen Concentration - - Weight - - Height - - Body Mass Index Plan of Treatment Health Maintenance Due Date Last Done Comments HIV SCREENING 1978 DTAP/TDAP VACCINES (1 - 1981 Tdap) HEPATITIS C SCREENING 1981 PHYSICAL (COMPREHENSIVE) 1981 EXAM CERVICAL CANCER SCREENING 1984 BREAST CANCER SCREENING 2003 COLORECTAL CANCER 2013 SCREENING SHINGLES RECOMBINANT 2013 VACCINE (1 of 2) INFLUENZA VACCINE 04/16/2021 Results Not on filefrom Last 3 Months Care Teams Start Date End Date Senior Supply Chain Analyst Relationship Specialty 02/06/11 Wayne Mcdonough MD PCP - General [id number] [facility] [address] [place] [address] 02/05/11 Yair, AUREA Castillo Emergency Medicine
--- OUTSIDE RECORDS SUMMARY | 2021-08-14 07:31 | XMS REPORT | CCD ---
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 Name Role Phone Marlys Miller PP Unavailable CCM Unavailable Summary Purpose Interface Exchange Insurance Providers Payer name Policy type / Coverage type Covered green party ID Effective Begin Date Effective End Date [facility] Commercial Insurance [id number] Unknown Unknown Family history Runs in the family Diagnosis Age At Onset Cancer Unknown Colon cancer Unknown Diabetes mellitus Type 2 Unknown Breast cancer Unknown Mother Diagnosis Age At Onset Hypertension Unknown Arthritis Unknown Diabetes mellitus Type 2 Unknown Brother Diagnosis Age At Onset Hypertension Unknown Father Diagnosis Age At Onset Arthritis Unknown Social History Social History Element Codes Description Effective Dates Marital status Unknown Single 03/31/2019 Employment Unknown Currently employed [employer] 03/31/[address]: 012129345 Never smoker 03/31/[address]: 519664128 Never drinks alcohol 2018 Has the patient [...] Start Date Stop Date Status Fill Instructions metoprolol succinate ER 25 mg tablet,extended release 24 hr RxNorm: 967344 TAKE 1 TABLET BY MOUTH EVERY DAY 05/09/2021 08/06/2021 Active Wellbutrin XL 300 mg 24 hr tablet, extended release RxNorm: 690181 TAKE 1 TABLET BY MOUTH EVERY DAY 02/10/2021 05/10/2021 Inactive buspirone 5 mg tablet RxNorm: 512562 TAKE 1 TABLET BY MOUTH THR EE TIMES DAILY 02/09/2021 08/07/2021 Active Wellbutrin XL 300 mg 24 hr tablet, extended release RxNorm: 185546 TAKE 1 TABLET BY MOUTH EVERY DAY 02/09/2021 08/07/2021 Active metformin 500 mg tablet RxNorm: 525202 TAKE 1 TABLET BY MOUTH T WICE DAILY 02/09/2021 08/07/2021 Active metoprolol succinate ER 25 mg tablet,extended release 24 hr RxNorm: 260758 TAKE 1 TABLET BY MOUTH EVERY DAY 02/09/2021 02/09/2021 Inactive triamcinolone acetonide 0.025 % topical cream RxNorm: 883451 4 1 Application Topical two times a day 07/13/2020 No Stop Date Active ketoconazole 2 % topical cream RxNorm: 575539 1 Applica tion Topical two times a day 07/13/2020 No Stop Date Active metoprolol succinate ER 25 mg tablet,extended release 24 hr RxNorm: 553234 1 Tablet(s) Oral every day 01/18/2020 01/12/2021 Inactive metformin 500 mg tablet RxNorm: 974516 1 Tablet(s) Oral two jaleesa es a day 01/18/2020 01/12/2021 Inactive Wellbutrin XL 300 mg 24 hr tablet, extended release RxNorm: 648273 1 Tablet(s) Oral every day 01/18/2020 01/12/2021 Inactive buspirone 5 mg tablet RxNorm: 523383 1 Tablet(s) Oral three jaleesa es a day 01/18/2020 01/12/2021 Inactive metoprolol succinate ER 25 mg tablet,extended release 24 hr RxNorm: 731569 1 Tablet(s) Oral every day 01/13/2020 01/17/2020 Inactive metformin 500 mg tablet RxNorm: 449791 1 Tablet(s) Oral two jaleesa es a day 01/13/2020 01/17/2020 Inactive Wellbutrin XL 300 mg 24 hr tablet, extended release RxNorm: 359769 1 Tablet(s) Oral every day 01/13/2020 01/17/2020 Inactive buspirone 5 mg tablet RxNorm: 780487 1 Tablet(s) Oral three jaleesa es a day 01/13/2020 01/17/2020 Inactive doxycycline hyclate 100 mg capsule RxNorm: 8280844 1 Cap mirta(s) Oral two times a day 11/25/2019 12/05/2019 Inactive Tamiflu 75 mg capsule RxNorm: 014898 1 Capsule(s) Oral two time s a day 11/25/2019 11/30/2019 Inactive triamcinolone acetonide 0.025 % topical cream RxNorm: 689355 4 1 Application Topical two times a day 07/14/2019 01/12/2020 Inactive buspirone 5 mg tablet RxNorm: 985120 1 Tablet(s) Oral three jaleesa es a day 07/14/2019 08/13/2019 Inactive Wellbutrin XL 300 mg 24 hr tablet, extended release RxNorm: 405183 1 Tablet(s) Oral every day 07/14/2019 01/12/2020 Inactive metformin 500 mg tablet RxNorm: 530343 1 Tablet(s) Oral two jaleesa es a day 07/14/2019 01/12/2020 Inactive metoprolol succinate ER 25 mg tablet,extended release 24 hr RxNorm: 625464 1 Tablet(s) PO daily 04/28/2019 01/12/2020 Inactive metformin 500 mg tablet RxNorm: 920567 1 Tablet(s) PO daily 019 07/13/2019 Inactive Wellbutrin SR 150 mg tablet, 12 hr sustained-release RxNorm: 860341 1 Tablet(s) PO BID 04/28/2019 07/10/2019 Inactive bupropion HCl 75 mg tablet RxNorm: 084763 1 Tablet(s) PO BID 201804/21/2019 Inactive B12 sublingual RxNorm: 33278 sublingual 03/31/2019 Active Vitamin D (with calcium) oral RxNorm: 321571 oral 03/31/2019 Active Multivitamin 50 Plus oral RxNorm: 34265 oral 03/31/2019 Active magnesium RxNorm: 1 Tablet(s) PO daily 03/31/2019 Active biotin oral RxNorm: 1588 oral 03/31/2019 Active Medication Administered No Medication Administered data Immunizations No Immunization data Results Observation Observation Code Item Item Code Result Date S ervice Location %Hba1C Xdf727 % HbA1c 63188-7 6.6 % 07/07/2020 Unknown %Hba1C Igu225 Gluc Ave 143 mg/dL 07/07/2020 Unknown Comp Metabolic Eno511 NA 138 mEq/L 07/07/2020 Unkn own Comp Metabolic Hla162 K 3.9 mEq/L 07/07/2020 Unkn own Comp Metabolic Ddq793 CL 101 mEq/L 07/07/2020 Unkn own Comp Metabolic Yjd449 CO2 29.0 mEq/L 07/07/2020 Unk nown Comp Metabolic Uhh787 ANION GAP 12 07/07/2020 Unkn own Comp Metabolic Ciz114 GLUCOSE 127 mg/dL 07/07/2020 Unkn own Comp Metabolic Fbc397 Creat 0.8 mg/dL 07/07/2020 Unkn own Comp Metabolic Whp687 eGFR 75 ml/min/1.73m2 07/07/20 20 Unknown Comp Metabolic Bwz522 BUN 12 mg/dL 07/07/2020 Unkn own Comp Metabolic Ito513 B/C Ratio 14.5 Ratio 07/07/2020 Unk nown Comp Metabolic Kmw343 CALCIUM 9.7 mg/dL 07/07/2020 Unkn own Comp Metabolic Kdi912 ALK PHOS 103 U/L 07/07/2020 Unkn own Comp Metabolic Ags841 AST(SGOT) 16 U/L 07/07/2020 Unkn own Comp Metabolic Cry423 ALT(SGPT) 16 U/L 07/07/2020 Unkn own Comp Metabolic Anw729 BILI T 0.9 mg/dL 07/07/2020 Unkn own Comp Metabolic Nvu957 ALBUMIN 4.0 g/dL 07/07/2020 Unkn own Comp Metabolic Tuy240 TPRO 6.6 g/dL 07/07/2020 Unkn own Comp Metabolic Fbp768 GLOB 2.6 g/dL 07/07/2020 Unkn own Comp Metabolic Ygq365 A/G Ratio 1.5 Ratio 07/07/2020 Unkn own Comp Metabolic Zyf697 Osmo 277 mOsmo 07/07/2020 Unkn own Tsh [...] pg 07/07/20 Unknown Cbc With Differential Ord2 [place]% 4.8 % 07/07/20 Unknown Cbc With Differential [...] K/ul 020 Unknown Cbc With Differential Ord2 [place] ABS# 0.3 K/ul 07/07/20 Unknown Cbc With Differential Ord2 Eos ABS# 0.1 K/ul 07/07/20 Unknown Cbc With Differential Ord2 Baso ABS# 0.0 K/ul 07/07/20 20 Unknown Comp Metabolic Fra638 NA 140 mEq/L 07/07/2019 Unkn own Comp Metabolic Gph395 K 3.9 mEq/L 07/07/2019 Unkn own Comp Metabolic Kkk342 CL 102 mEq/L 07/07/2019 Unkn own Comp Metabolic Wla497 CO2 30.0 mEq/L 07/07/2019 Unk nown Comp Metabolic Oly468 ANION GAP 12 07/07/2019 Unkn own Comp Metabolic Cju767 GLUCOSE 150 mg/dL 07/07/2019 Unkn own Comp Metabolic Sey865 Creat 0.8 mg/dL 07/07/2019 Unkn own Comp Metabolic Cpm857 eGFR 79 ml/min/1.73m2 07/07/20 19 Unknown Comp Metabolic Zwj935 BUN 12 mg/dL 07/07/2019 Unkn own Comp Metabolic Jrz503 B/C Ratio 15.0 Ratio 07/07/2019 Unk nown Comp Metabolic Iua431 CALCIUM 9.4 mg/dL 07/07/2019 Unkn own Comp Metabolic Odn031 ALK PHOS 114 U/L 07/07/2019 Unkn own Comp Metabolic Eyi050 AST(SGOT) 20 U/L 07/07/2019 Unkn own Comp Metabolic Goo128 ALT(SGPT) 18 U/L 07/07/2019 Unkn own Comp Metabolic Rbb274 BILI T 1.0 mg/dL 07/07/2019 Unkn own Comp Metabolic Sez178 ALBUMIN 4.0 g/dL 07/07/2019 Unkn own Comp Metabolic Qis082 TPRO 6.5 g/dL 07/07/2019 Unkn own Comp Metabolic Krf428 GLOB 2.5 g/dL 07/07/2019 Unkn own Comp Metabolic Sii226 A/G Ratio 1.6 Ratio 07/07/2019 Unkn own Comp Metabolic Yjv034 Osmo 282 mOsmo 07/07/2019 Unkn own %Hba1C Mnh610 % HbA1c 42608-1 7.4 % 07/07/2019 Unknown %Hba1C Ucs436 Gluc Ave 166 mg/dL 07/07/2019 Unknown Cbc [...] 03/31/20 19 Unknown Cbc With Differential Ord2 [place]% 5.8 % 03/31/20 19 Unknown Cbc With [...] K/ul 019 Unknown Cbc With Differential Ord2 [place] ABS# 0.3 K/ul 03/31/20 19 Unknown Cbc [...] 2.93 uIU/mL 03/31/2019 Unkn own Comp Metabolic Zui624 NA 138 mEq/L 03/31/2019 Unkn own Comp Metabolic Gtt990 K 4.1 mEq/L 03/31/2019 Unkn own Comp Metabolic Yhp191 CL 100 mEq/L 03/31/2019 Unkn own Comp Metabolic Vuw544 CO2 31.0 mEq/L 03/31/2019 Unk nown Comp Metabolic Mga124 ANION GAP 11 03/31/2019 Unkn own Comp Metabolic Ewg698 GLUCOSE 157 mg/dL 03/31/2019 Unkn own Comp Metabolic Pyd731 Creat 0.7 mg/dL 03/31/2019 Unkn own Comp Metabolic Ohl423 eGFR 89 ml/min/1.73m2 03/31/20 19 Unknown Comp Metabolic Lqp525 BUN 11 mg/dL 03/31/2019 Unkn own Comp Metabolic Ufq535 B/C Ratio 15.3 Ratio 03/31/2019 Unk nown Comp Metabolic Eiz837 CALCIUM 9.4 mg/dL 03/31/2019 Unkn own Comp Metabolic Klr693 ALK PHOS 113 U/L 03/31/2019 Unkn own Comp Metabolic Nqq235 AST(SGOT) 19 U/L 03/31/2019 Unkn own Comp Metabolic Ech391 ALT(SGPT) 19 U/L 03/31/2019 Unkn own Comp Metabolic Qig376 BILI T 1.1 mg/dL 03/31/2019 Unkn own Comp Metabolic Opb906 ALBUMIN 4.0 g/dL 03/31/2019 Unkn own Comp Metabolic Iih427 TPRO 6.5 g/dL 03/31/2019 Unkn own Comp Metabolic Xlz398 GLOB 2.5 g/dL 03/31/2019 Unkn own Comp Metabolic Oka395 A/G Ratio 1.6 Ratio 03/31/2019 Unkn own Comp Metabolic Ale595 Osmo 278 mOsmo 03/31/2019 Unkn own %Hba1C Yvf752 % HbA1c 94478-8 7.9 % 03/31/2019 Unknown %Hba1C Ijk322 Gluc Ave 180 mg/dL 03/31/2019 Unknown Procedures No Procedures data Vital Signs Date Vital 07/13/2020 Blood Pressure 1: 142/88 Code: 8480-6 BMI: 43.9 Code: 00736-5 Heart Rate 1: 86 bpm Height: 5'5" Code: 8302-2 SpO2: 98% Temperature: 3 6.9 (C) / 98.4 (F) Weight: 264 lbs Code: 11827-5 01/13/2020 Blood Pressure 1: 124/80 Code: 8480-6 BMI: 43.9 Code: 74219-2 Heart Rate 1: 75 bpm Height: 5'5" Code: 8302-2 SpO2: 96% Temperature: 3 6.6 (C) / 97.8 (F) Weight: 264 lbs Code: 33944-7 11/25/2019 Blood Pressure 1: 150/78 Code: 8480-6 BMI: 44.6 Code: 37559-1 Heart Rate 1: 80 bpm Height: 5'5" Code: 8302-2 SpO2: 95% Temperature: 3 6.6 (C) / 97.8 (F) Weight: 268 lbs Code: 67451-5 07/14/2019 Blood Pressure 1: 146/82 Code: 8480-6 BMI: 46.6 Code: 76782-8 Heart Rate 1: 75 bpm Height: 5'5" Code: 8302-2 SpO2: 97% Weight: 280 lb s Code: 74535-0 04/28/2019 Blood Pressure 1: 142/82 Code: 8480-6 BMI: 46.6 Code: 03959-0 Heart Rate 1: 88 bpm Height: 5'5" Code: 8302-2 SpO2: 97% Weight: 280 lb s Code: 46997-7 03/31/2019 Blood Pressure 1: 144/90 Code: 8480-6 BMI: 46.9 Code: 10017-1 Heart Rate 1: 82 bpm Height: 5'5" Code: 8302-2 SpO2: 98% Weight: 282 lb s Code: 31267-2 Functional Status No Functional Status data Reason For Visit Reason For Visit Effective Dates Notes depression 07/13/2020 depression 01/13/2020 fever 11/25/2019 depression 07/14/2019 depression 04/28/2019 depression 03/31/2019 Encounters Encounter Performer Location Codes Date 68946 EST. PATIENT, LEVEL IV Diagnosis: Essential (primary) hypertension[ICD10: I10] Diagnosis: Type 2 diabetes mellitus without complications[ICD10: E11.9] Diagnosis: Change in mole[ICD10: D22.9] Diagnosis: Restless leg syndrome[ICD10: G25.81] Noemí Miller MD, [facility] CPT-4: 00071 07/13/2020 21473 EST. PATIENT, LEVEL III Diagnosis: Generalized anxiety disorder[ICD10: F41.1] Diagnosis: Major depressive disorder, single episode, moderate[ICD10: F32.1] Diagnosis: Essential (primary) hypertension[ICD10: I10] Diagnosis: Type 2 diabetes mellitus without complications[ICD10: E11.9] Noemí Miller MD, [facility] CPT-4: 26467 01/13/2020 61059 EST. PATIENT, LEVEL III Diagnosis: Influenza[ICD10: J11.1] Diagnosis: Cellulitis of right leg[ICD10: L03.115] Noemí Miller MD, [facility] CPT-4: 36243 11/25/2019 28719 EST. PATIENT, LEVEL IV Diagnosis: Generalized anxiety disorder[ICD10: F41.1] Diagnosis: Major depressive disorder, single episode, moderate[ICD10: F32.1] Diagnosis: Type 2 diabetes mellitus without complications[ICD10: E11.9] Diagnosis: Essential (primary) hypertension[ICD10: I10] [facility] CPT-4: 30756 07/14/2019 54147 EST. PATIENT, LEVEL IV Diagnosis: Generalized anxiety disorder[ICD10: F41.1] Diagnosis: Major depressive disorder, single episode, moderate[ICD10: F32.1] Diagnosis: Type 2 diabetes mellitus without complications[ICD10: E11.9] Diagnosis: Essential (primary) hypertension[ICD10: I10] [facility] CPT-4: 27466 04/28/2019 OFFICE VISIT, NEW - LEVEL 4 Diagnosis: Essential (primary) hypertension[ICD10: I10] Diagnosis: Type 2 diabetes mellitus without complications[ICD10: E11.9] Diagnosis: Generalized anxiety disorder[ICD10: F41.1] Diagnosis: Major depressive disorder, single episode, moderate[ICD10: F32.1] Diagnosis: Other obesity due to excess calories[ICD10: E66.09] [facility] CPT-4: 56610 03/31/2019 Plan of Care Planned Activity Notes Codes Status Date Patient Education: Patient Medication Summary Completed 07/05/2021 Care Plan: Cbc With Differential Pending 07/05/2021 Care Plan: Comp Metabolic Pending Care Plan: Tsh Pending 07/05/2021 Care Plan: Lipid Pending 07/05/2021 Care Plan: %Hba1C LOINC : 03014-4 Pending 07/05/2021 Visit Plan: Restless Leg Syndrome - [...] controlled. 07/13/2020 Appointment: Noemí Landeros WPtel: [phone] [facility] (30 min) Complex 07/13/2020 Patient Education: Patient [...] less controlled. 01/13/2020 Appointment: Noemí Landeros WPtel: [phone] [facility] (30 min) Complex 01/13/2020 Patient Education: Patient [...] warmth, discharge. 11/25/2019 [phone] [facility] 11/25/2019 Patient Education: Patient Medication Summary Completed 11/25/2019 Care Plan: VASCULAR STUDY [facility] : [address]- 0 Pending 11/25/2019 Visit Plan: Chronic Depression [...] control. 07/14/2019 Appointment: [phone] ([facility] 07/14/2019 Patient Education: [...] glucose control. 04/28/2019 Appointment: Noemí Landeros WPtel[facility] ([facility] 04/28/2019 Patient Education: Patient Medication Summary Completed [...] glucose control. 03/31/2019 Appointment: Noemí Landeros [facility]el[facility] [facility] 03/31/2019 Patient Education: Patient Medication Summary Completed 03/31/2019 Patient Education: Diabetes Completed 03/31/2019 Patient Education: Depression Completed 03/31/2019 Patient Education: Obesity Completed 0 03/31/2019 Instructions Comment will send orders for mammogram - call [phone] to schedule - at [address] Get [...]
--- OUTSIDE RECORDS SUMMARY | 2021-08-14 07:31 | XMS REPORT | CCD ---
Author Author Renate Landeros Organization Marlys Miller MD, [facility] Address [address] [place] [address] Phone Care Team Providers Care Sterile Process Coordinator Name Role Phone Marlys Miller PP Unavailable CCM Unavailable Summary Purpose Interface Exchange Insurance Providers Payer name Policy type / Coverage type Covered democrat ID Effective Begin Date Effective End Date [facility] [id number] Unknown Family history Runs in the family [...] employed [employer] 03/31/[address]: 974676463 Never smoker 03/31/[address]: 973489604 Never drinks alcohol 2018 Has the patient [...] Fill Instructions buspirone 5 mg tablet RxNorm: 551731 TAKE 1 TABLET BY MOUTH THR EE TIMES DAILY 07/14/2021 10/11/2021 Active Wellbutrin XL 300 mg 24 hr tablet, extended release RxNorm: 154422 TAKE 1 TABLET BY MOUTH EVERY DAY 07/14/2021 10/11/2021 Active metoprolol succinate ER 25 mg tablet,extended release 24 hr RxNorm: 245809 TAKE 1 TABLET BY MOUTH EVERY DAY 07/14/2021 10/11/2021 Active pantoprazole 40 mg tablet,delayed release RxNorm: 825583 Take 1 Tablet(s) Oral as directed 1 tab twice daily x 3 weeks then daily thereafter 07/13/2021 12/09/2021 Active metformin 500 mg tablet RxNorm: 633109 Take 1 Tablet(s) Oral th ree times a day 07/13/2021 01/08/2022 Active metoprolol succinate ER 25 mg tablet,extended release 24 hr RxNorm: 788380 TAKE 1 TABLET BY MOUTH EVERY DAY 05/09/2021 05/09/2021 Inactive Wellbutrin XL 300 mg 24 hr tablet, extended release RxNorm: 512522 TAKE 1 TABLET BY MOUTH EVERY DAY 02/10/2021 05/10/2021 Inactive metoprolol succinate ER 25 mg tablet,extended release 24 hr RxNorm: 713679 TAKE 1 TABLET BY MOUTH EVERY DAY 02/09/2021 02/09/2021 Inactive buspirone 5 mg tablet RxNorm: 251377 TAKE 1 TABLET BY MOUTH THR EE TIMES DAILY 02/09/2021 02/09/2021 Inactive Wellbutrin XL 300 mg 24 hr tablet, extended release RxNorm: 756005 TAKE 1 TABLET BY MOUTH EVERY DAY 02/09/2021 02/09/2021 Inactive metformin 500 mg tablet RxNorm: 337226 TAKE 1 TABLET BY MOUTH T WICE DAILY 02/09/2021 07/12/2021 Inactive triamcinolone acetonide 0.025 % topical cream RxNorm: 380409 4 1 Application Topical two times a day 07/13/2020 No Stop Date Active ketoconazole 2 % topical cream RxNorm: 913679 1 Applica tion Topical two times a day 07/13/2020 No Stop Date Active metoprolol succinate ER 25 mg tablet,extended release 24 hr RxNorm: 142835 1 Tablet(s) Oral every day 01/18/2020 01/12/2021 Inactive metformin 500 mg tablet RxNorm: 220525 1 Tablet(s) Oral two jaleesa es a day 01/18/2020 01/12/2021 Inactive Wellbutrin XL 300 mg 24 hr tablet, extended release RxNorm: 000360 1 Tablet(s) Oral every day 01/18/2020 01/12/2021 Inactive buspirone 5 mg tablet RxNorm: 766486 1 Tablet(s) Oral three jaleesa es a day 01/18/2020 01/12/2021 Inactive metoprolol succinate ER 25 mg tablet,extended release 24 hr RxNorm: 117596 1 Tablet(s) Oral every day 01/13/2020 01/17/2020 Inactive metformin 500 mg tablet RxNorm: 723270 1 Tablet(s) Oral two jaleesa es a day 01/13/2020 01/17/2020 Inactive Wellbutrin XL 300 mg 24 hr tablet, extended release RxNorm: 863455 1 Tablet(s) Oral every day 01/13/2020 01/17/2020 Inactive buspirone 5 mg tablet RxNorm: 602218 1 Tablet(s) Oral three jaleesa es a day 01/13/2020 01/17/2020 Inactive doxycycline hyclate 100 mg capsule RxNorm: 3714014 1 Cap mirta(s) Oral two times a day 11/25/2019 12/05/2019 Inactive Tamiflu 75 mg capsule RxNorm: 009621 1 Capsule(s) Oral two time s a day 11/25/2019 11/30/2019 Inactive triamcinolone acetonide 0.025 % topical cream RxNorm: 911956 4 1 Application Topical two times a day 07/14/2019 01/12/2020 Inactive buspirone 5 mg tablet RxNorm: 994548 1 Tablet(s) Oral three jaleesa es a day 07/14/2019 08/13/2019 Inactive Wellbutrin XL 300 mg 24 hr tablet, extended release RxNorm: 180525 1 Tablet(s) Oral every day 07/14/2019 01/12/2020 Inactive metformin 500 mg tablet RxNorm: 794952 1 Tablet(s) Oral two jaleesa es a day 07/14/2019 01/12/2020 Inactive metoprolol succinate ER 25 mg tablet,extended release 24 hr RxNorm: 995753 1 Tablet(s) PO daily 04/28/2019 01/12/2020 Inactive metformin 500 mg tablet RxNorm: 786605 1 Tablet(s) PO daily 019 07/13/2019 Inactive Wellbutrin SR 150 mg tablet, 12 hr sustained-release RxNorm: 209139 1 Tablet(s) PO BID 04/28/2019 07/10/2019 Inactive bupropion HCl 75 mg tablet RxNorm: 287094 1 Tablet(s) PO BID 201804/21/2019 Inactive B12 sublingual RxNorm: 19023 sublingual 03/31/2019 Active Vitamin D (with calcium) oral RxNorm: 882008 oral 03/31/2019 Active Multivitamin 50 Plus oral RxNorm: 74568 oral 03/31/2019 Active magnesium RxNorm: 1 Tablet(s) PO daily 03/31/2019 Active biotin oral RxNorm: 1588 oral 03/31/2019 Active Medication Administered No Medication Administered data Immunizations No Immunization data Results Observation Observation Code Item Item Code Result Date S ervice Location Comp Metabolic Yzr663 NA 138 mEq/L 07/07/2021 Unkn own Comp Metabolic Giu892 K 4.1 mEq/L 07/07/2021 Unkn own Comp Metabolic Rto579 CL 101 mEq/L 07/07/2021 Unkn own Comp Metabolic Hfx342 CO2 29.0 mEq/L 07/07/2021 Unk nown Comp Metabolic Ffb416 ANION GAP 12 07/07/2021 Unkn own Comp Metabolic Ekz017 GLUCOSE 171 mg/dL 07/07/2021 Unkn own Comp Metabolic Wti094 Creat 0.9 mg/dL 07/07/2021 Unkn own Comp Metabolic Ggm334 eGFR 70 ml/min/1.73m2 07/07/20 21 Unknown Comp Metabolic Ihc834 BUN 13 mg/dL 07/07/2021 Unkn own Comp Metabolic Ita058 B/C Ratio 14.8 Ratio 07/07/2021 Unk nown Comp Metabolic Yzz825 CALCIUM 9.0 mg/dL 07/07/2021 Unkn own Comp Metabolic Zmt686 ALK PHOS 102 U/L 07/07/2021 Unkn own Comp Metabolic Bjv468 AST(SGOT) 20 U/L 07/07/2021 Unkn own Comp Metabolic Cde909 ALT(SGPT) 18 U/L 07/07/2021 Unkn own Comp Metabolic Laz451 BILI T 0.7 mg/dL 07/07/2021 Unkn own Comp Metabolic Oot343 ALBUMIN 4.1 g/dL 07/07/2021 Unkn own Comp Metabolic Usq306 TPRO 6.7 g/dL 07/07/2021 Unkn own Comp Metabolic Jex230 GLOB 2.6 g/dL 07/07/2021 Unkn own Comp Metabolic Dim484 A/G Ratio 1.6 Ratio 07/07/2021 Unkn own Comp Metabolic Oko929 Osmo 280 mOsmo 07/07/2021 Unkn own Cbc With Differential Ord2 WBC 6.42 K/ul 07/06/20 Unknown Cbc With Differential Ord2 RBC 4.63 M/ul 07/06/20 Unknown Cbc With Differential Ord2 HGB 13.2 g/dl 07/06/20 Unknown Cbc With Differential Ord2 HCT 40.9 % 07/06/20 Unknown Cbc With Differential Ord2 Neut% 61.9 % 07/06/20 Unknown Cbc With Differential Ord2 MCV 88.3 fl 07/06/20 Unknown Cbc With Differential Ord2 Lymph% 29.0 % 07/06/20 Unknown Cbc With Differential Ord2 MCH 28.5 pg 07/06/20 Unknown Cbc With Differential Ord2 Fajardo% 6.2 % 07/06/20 Unknown Cbc With Differential Ord2 MCHC 32.3 pg 07/06/20 Unknown Cbc With Differential Ord2 Eos% 2.6 % 07/06/20 Unknown Cbc With Differential Ord2 Baso% 0.3 % 07/06/20 Unknown Cbc With Differential Ord2 PLT 214 K/ul 07/06/20 Unknown Cbc With Differential Ord2 Neut ABS# 3.97 K/ul 10/21/20 21 Unknown Cbc With Differential Ord2 RDW 13.4 % 07/06/20 Unknown Cbc With Differential Ord2 Lymph ABS# 1.86 K/ul 021 Unknown Cbc With Differential Ord2 Fajardo ABS# 0.4 K/ul 07/06/20 Unknown Cbc With [...] IS) 3.85 uIU/mL 07/06/2021 Unkn own %Hba1C Dbp802 % HbA1c 46258-3 8.1 % 07/06/2021 Unknown %Hba1C Vzt878 Gluc Ave 186 mg/dL 07/06/2021 Unknown %Hba1C Pon565 % HbA1c 72212-9 6.6 % 07/07/2020 Unknown %Hba1C Mhi158 Gluc Ave 143 mg/dL 07/07/2020 Unknown Comp Metabolic Xua564 NA 138 mEq/L 07/07/2020 Unkn own Comp Metabolic Sxl759 K 3.9 mEq/L 07/07/2020 Unkn own Comp Metabolic Nho173 CL 101 mEq/L 07/07/2020 Unkn own Comp Metabolic Uxk578 CO2 29.0 mEq/L 07/07/2020 Unk nown Comp Metabolic Lrv966 ANION GAP 12 07/07/2020 Unkn own Comp Metabolic Cya707 GLUCOSE 127 mg/dL 07/07/2020 Unkn own Comp Metabolic Qzv897 Creat 0.8 mg/dL 07/07/2020 Unkn own Comp Metabolic Nyv488 eGFR 75 ml/min/1.73m2 07/07/20 20 Unknown Comp Metabolic Hsa418 BUN 12 mg/dL 07/07/2020 Unkn own Comp Metabolic Hmk125 B/C Ratio 14.5 Ratio 07/07/2020 Unk nown Comp Metabolic Bgj386 CALCIUM 9.7 mg/dL 07/07/2020 Unkn own Comp Metabolic Uqt552 ALK PHOS 103 U/L 07/07/2020 Unkn own Comp Metabolic Dzu433 AST(SGOT) 16 U/L 07/07/2020 Unkn own Comp Metabolic Ckc383 ALT(SGPT) 16 U/L 07/07/2020 Unkn own Comp Metabolic Qoy574 BILI T 0.9 mg/dL 07/07/2020 Unkn own Comp Metabolic Cyn506 ALBUMIN 4.0 g/dL 07/07/2020 Unkn own Comp Metabolic Nib134 TPRO 6.6 g/dL 07/07/2020 Unkn own Comp Metabolic Bmc054 GLOB 2.6 g/dL 07/07/2020 Unkn own Comp Metabolic Nue723 A/G Ratio 1.5 Ratio 07/07/2020 Unkn own Comp Metabolic Skm440 Osmo 277 mOsmo 07/07/2020 Unkn own Tsh [...] pg 07/07/20 Unknown Cbc With Differential Ord2 Fajardo% 4.8 % 07/07/20 Unknown Cbc With Differential Ord2 MCHC 33.1 pg 07/07/20 Unknown Cbc With Differential Ord2 Eos% 1.9 % 07/07/20 Unknown Cbc With Differential Ord2 PLT 192 K/ul 07/07/20 Unknown Cbc With Differential Ord2 Baso% 0.2 % 07/07/20 Unknown Cbc With Differential Ord2 Neut ABS# 3.39 K/ul 10/22/20 20 Unknown Cbc With Differential Ord2 RDW 12.7 % 07/07/20 20 Unknown Cbc With Differential Ord2 Lymph ABS# 1.62 K/ul 020 Unknown Cbc With Differential Ord2 Fajardo ABS# 0.3 K/ul 07/07/20 20 Unknown Cbc With Differential Ord2 Eos ABS# 0.1 K/ul 07/07/20 20 Unknown Cbc With Differential Ord2 Baso ABS# 0.0 K/ul 07/07/20 20 Unknown Comp Metabolic Ebg573 NA 140 mEq/L 07/07/2019 Unkn own Comp Metabolic Gvu710 K 3.9 mEq/L 07/07/2019 Unkn own Comp Metabolic Mds963 CL 102 mEq/L 07/07/2019 Unkn own Comp Metabolic Qnh298 CO2 30.0 mEq/L 07/07/2019 Unk nown Comp Metabolic Jev549 ANION GAP 12 07/07/2019 Unkn own Comp Metabolic Asy936 GLUCOSE 150 mg/dL 07/07/2019 Unkn own Comp Metabolic Aqp989 Creat 0.8 mg/dL 07/07/2019 Unkn own Comp Metabolic Hlt871 eGFR 79 ml/min/1.73m2 07/07/20 19 Unknown Comp Metabolic Nje047 BUN 12 mg/dL 07/07/2019 Unkn own Comp Metabolic Vfu440 B/C Ratio 15.0 Ratio 07/07/2019 Unk nown Comp Metabolic Pmn801 CALCIUM 9.4 mg/dL 07/07/2019 Unkn own Comp Metabolic Rjg751 ALK PHOS 114 U/L 07/07/2019 Unkn own Comp Metabolic Rtw406 AST(SGOT) 20 U/L 07/07/2019 Unkn own Comp Metabolic Wtm796 ALT(SGPT) 18 U/L 07/07/2019 Unkn own Comp Metabolic Bbh307 BILI T 1.0 mg/dL 07/07/2019 Unkn own Comp Metabolic Jkb637 ALBUMIN 4.0 g/dL 07/07/2019 Unkn own Comp Metabolic Dbi418 TPRO 6.5 g/dL 07/07/2019 Unkn own Comp Metabolic Iyb146 GLOB 2.5 g/dL 07/07/2019 Unkn own Comp Metabolic Ezi391 A/G Ratio 1.6 Ratio 07/07/2019 Unkn own Comp Metabolic Res664 Osmo 282 mOsmo 07/07/2019 Unkn own %Hba1C Kuw113 % HbA1c 37070-1 7.4 % 07/07/2019 Unknown %Hba1C Ffh553 Gluc Ave 166 mg/dL 07/07/2019 Unknown Cbc [...] 03/31/20 19 Unknown Cbc With Differential Ord2 Fajardo% 5.8 % 03/31/20 19 Unknown Cbc With [...] K/ul 019 Unknown Cbc With Differential Ord2 Fajardo ABS# 0.3 K/ul 03/31/20 19 Unknown Cbc [...] 2.93 uIU/mL 03/31/2019 Unkn own Comp Metabolic Mma096 NA 138 mEq/L 03/31/2019 Unkn own Comp Metabolic Xym549 K 4.1 mEq/L 03/31/2019 Unkn own Comp Metabolic Ptm472 CL 100 mEq/L 03/31/2019 Unkn own Comp Metabolic Tdp707 CO2 31.0 mEq/L 03/31/2019 Unk nown Comp Metabolic Cwe694 ANION GAP 11 03/31/2019 Unkn own Comp Metabolic Nvb688 GLUCOSE 157 mg/dL 03/31/2019 Unkn own Comp Metabolic Ach096 Creat 0.7 mg/dL 03/31/2019 Unkn own Comp Metabolic Xri334 eGFR 89 ml/min/1.73m2 03/31/20 19 Unknown Comp Metabolic Oto755 BUN 11 mg/dL 03/31/2019 Unkn own Comp Metabolic Gjy884 B/C Ratio 15.3 Ratio 03/31/2019 Unk nown Comp Metabolic Fod422 CALCIUM 9.4 mg/dL 03/31/2019 Unkn own Comp Metabolic Rev915 ALK PHOS 113 U/L 03/31/2019 Unkn own Comp Metabolic Bqp079 AST(SGOT) 19 U/L 03/31/2019 Unkn own Comp Metabolic Xyk659 ALT(SGPT) 19 U/L 03/31/2019 Unkn own Comp Metabolic Pkl192 BILI T 1.1 mg/dL 03/31/2019 Unkn own Comp Metabolic Wrt273 ALBUMIN 4.0 g/dL 03/31/2019 Unkn own Comp Metabolic Oje173 TPRO 6.5 g/dL 03/31/2019 Unkn own Comp Metabolic Wfp018 GLOB 2.5 g/dL 03/31/2019 Unkn own Comp Metabolic Xet900 A/G Ratio 1.6 Ratio 03/31/2019 Unkn own Comp Metabolic Icr918 Osmo 278 mOsmo 03/31/2019 Unkn own %Hba1C Vsx559 % HbA1c 18495-3 7.9 % 03/31/2019 Unknown %Hba1C Jck713 Gluc Ave 180 mg/dL 03/31/2019 Unknown Procedures No Procedures data Vital Signs Date Vital 07/13/2020 Blood Pressure 1: 142/88 Code: 8480-6 BMI: 43.9 Code: 81641-3 Heart Rate 1: 86 bpm Height: 5'5" Code: 8302-2 SpO2: 98% Temperature: 3 6.9 (C) / 98.4 (F) Weight: 264 lbs Code: 09643-5 01/13/2020 Blood Pressure 1: 124/80 Code: 8480-6 BMI: 43.9 Code: 21723-0 Heart Rate 1: 75 bpm Height: 5'5" Code: 8302-2 SpO2: 96% Temperature: 3 6.6 (C) / 97.8 (F) Weight: 264 lbs Code: 31443-8 11/25/2019 Blood Pressure 1: 150/78 Code: 8480-6 BMI: 44.6 Code: 03328-5 Heart Rate 1: 80 bpm Height: 5'5" Code: 8302-2 SpO2: 95% Temperature: 3 6.6 (C) / 97.8 (F) Weight: 268 lbs Code: 45074-9 07/14/2019 Blood Pressure 1: 146/82 Code: 8480-6 BMI: 46.6 Code: 17321-6 Heart Rate 1: 75 bpm Height: 5'5" Code: 8302-2 SpO2: 97% Weight: 280 lb s Code: 40933-6 04/28/2019 Blood Pressure 1: 142/82 Code: 8480-6 BMI: 46.6 Code: 50277-7 Heart Rate 1: 88 bpm Height: 5'5" Code: 8302-2 SpO2: 97% Weight: 280 lb s Code: 74208-4 03/31/2019 Blood Pressure 1: 144/90 Code: 8480-6 BMI: 46.9 Code: 77536-8 Heart Rate 1: 82 bpm Height: 5'5" Code: 8302-2 SpO2: 98% Weight: 282 lb s Code: 37412-9 Functional Status No Functional Status data Reason For Visit Reason For Visit Effective Dates Notes depression 07/13/2020 depression 01/13/2020 fever 11/25/2019 depression 07/14/2019 depression 04/28/2019 depression 03/31/2019 Encounters Encounter Performer Location Codes Date [address]3310 EST. PATIENT, LEVEL IV Diagnosis: Essential (primary) hypertension[ICD10: I10] Diagnosis: Type 2 diabetes mellitus without complications[ICD10: E11.9] Diagnosis: Change in mole[ICD10: D22.9] Diagnosis: Restless leg syndrome[ICD10: G25.81] Noemí Miller MD, [facility] CPT-4: 07712 07/13/2020 99692 EST. PATIENT, LEVEL III Diagnosis: Generalized anxiety disorder[ICD10: F41.1] Diagnosis: Major depressive disorder, single episode, moderate[ICD10: F32.1] Diagnosis: Essential (primary) hypertension[ICD10: I10] Diagnosis: Type 2 diabetes mellitus without complications[ICD10: E11.9] Noemí Miller MD, [facility] CPT-4: 62019 01/13/2020 20985 EST. PATIENT, LEVEL III Diagnosis: Influenza[ICD10: J11.1] Diagnosis: Cellulitis of right leg[ICD10: L03.115] Noemí Miller MD, [facility] CPT-4: 92954 11/25/2019 56993 EST. PATIENT, LEVEL IV Diagnosis: Generalized anxiety disorder[ICD10: F41.1] Diagnosis: Major depressive disorder, single episode, moderate[ICD10: F32.1] Diagnosis: Type 2 diabetes mellitus without complications[ICD10: E11.9] Diagnosis: Essential (primary) hypertension[ICD10: I10] Noemí Miller MD, [facility] CPT-4: 79401 07/14/2019 51049 EST. PATIENT, LEVEL IV Diagnosis: Generalized anxiety disorder[ICD10: F41.1] Diagnosis: Major depressive disorder, single episode, moderate[ICD10: F32.1] Diagnosis: Type 2 diabetes mellitus without complications[ICD10: E11.9] Diagnosis: Essential (primary) hypertension[ICD10: I10] Noemí Miller MD, [facility] CPT-4: 33104 04/28/2019 OFFICE VISIT, NEW - LEVEL 4 Diagnosis: Essential (primary) hypertension[ICD10: I10] Diagnosis: Type 2 diabetes mellitus without complications[ICD10: E11.9] Diagnosis: Generalized anxiety disorder[ICD10: F41.1] Diagnosis: Major depressive disorder, single episode, moderate[ICD10: F32.1] Diagnosis: Other obesity due to excess calories[ICD10: E66.09] Noemí Miller MD, [facility] CPT-4: 45922 03/31/2019 Plan of Care Planned Activity Notes Codes Status Date Appointment: Marlys Miller WPtel: [address] [place], [place] [phone] (15 min) Moderate 07/13/2021 Patient Education: Patient [...] controlled. 07/13/2020 [facility]ment[phone] ([facility] Complex 07/13/2020 Patient Education: Patient [...] controlled. 01/13/2020 Appointment: [facility] [phone] [facility] ([facility] min) Complex 01/13/2020 Patient Education: Patient [...] warmth, discharge. 11/25/2019 Appointment: [phone] ([facility] [place]) Complex 11/25/2019 Patient Education: Patient Medication Summary Completed 11/25/2019 Care Plan: VASCULAR STUDY [facility] : [address]- 0 Pending 11/25/2019 Visit Plan: Chronic Depression [...] glucose control. 07/14/2019 Appointment: [facility]ander[phone] [facility] [place] ([place]) Complex 07/14/2019 Patient Education: Patient [...] glucose control. 04/28/2019 Appointment: Noemí Landeros WPtel: [address] [place], [place] [id number] (30 min) [facility] 04/28/2019 Patient Education: Patient Medication Summary Completed [...] glucose control. 03/31/2019 Appointment: Noemí Landeros WPtel[facility] New Patient 03/31/2019 Patient Education: Patient Medication Summary Completed 03/31/2019 Patient Education: Diabetes Completed 03/31/2019 Patient Education: Depression Completed 03/31/2019 Patient Education: Obesity Completed 0 03/31/2019 Instructions Comment will send orders for mammogram - call [phone] to schedule - at [address] Get [...]
--- OUTSIDE RECORDS SUMMARY | 2021-08-14 07:31 | XMS REPORT | CCD ---
Author Author Renate Landeros Organization Marlys Miller MD, [facility] Address [address] [place] [address] Phone Care Team Providers Care Netezza Architect Name Role Phone Marlys Miller PP Unavailable CCM Unavailable Summary Purpose Interface Exchange Insurance Providers Payer name Policy type / Coverage type Covered alliance party ID Effective Begin Date Effective End Date [place] [facility] [id number] Unknown Family history Runs in the family [...] employed [employer] 03/31/[address]: 853877969 Never smoker 03/31/[address]: 238645911 Never drinks alcohol 2018 Has the patient ever used illegal drugs? Unknown Has nev er used illegal drugs 03/31/2019 Allergies, Adverse Reactions, Alerts Substance Reaction Codes Entered Date Inactivated Date Status NO KNOWN DRUG ALLERGIES Unknown 03/31/2019 No Inactive Date Active Problems Condition Codes Effective Dates Condition Status Contracture of left hand ICD-10: M24.542 ICD-9: 718.44 07/13/2021 Active Contracture of right hand ICD-10: M24.541 ICD-9: 718.44 07/13/2021 Active Encounter for general adult medical examination with a bnormal findings ICD-10: Z00.01 ICD-9: V70.0 07/13/2021 Active Gastroesophageal reflux disease with esophagitis witho ut hemorrhage ICD-10: K21.00 ICD-9: 530.81 07/13/2021 Active Essential (primary) hypertension ICD-10: I10 ICD-9: 401.1 [...] 25 mg tablet,extended release 24 hr RxNorm: 609477 TAKE 1 TABLET BY MOUTH EVERY DAY 07/14/2021 10/11/2021 Active Wellbutrin XL 300 mg 24 hr tablet, extended release RxNorm: 504370 TAKE 1 TABLET BY MOUTH EVERY DAY 07/14/2021 10/11/2021 Active buspirone 5 mg tablet RxNorm: 835853 TAKE 1 TABLET BY MOUTH THR EE TIMES DAILY 07/14/2021 10/11/2021 Active buspirone 5 mg tablet RxNorm: 035998 TAKE 1 TABLET BY MOUTH THR EE TIMES DAILY 07/14/2021 07/14/2021 Inactive Wellbutrin XL 300 mg 24 hr tablet, extended release RxNorm: 181429 TAKE 1 TABLET BY MOUTH EVERY DAY 07/14/2021 07/14/2021 Inactive metoprolol succinate ER 25 mg tablet,extended release 24 hr RxNorm: 059399 TAKE 1 TABLET BY MOUTH EVERY DAY 07/14/2021 07/14/2021 Inactive pantoprazole 40 mg tablet,delayed release RxNorm: 872147 Take 1 Tablet(s) Oral as directed 1 tab twice daily x 3 weeks then daily thereafter 07/13/2021 12/09/2021 Active metformin 500 mg tablet RxNorm: 718063 Take 1 Tablet(s) Oral th ree times a day 07/13/2021 01/08/2022 Active metoprolol succinate ER 25 mg tablet,extended release 24 hr RxNorm: 860724 TAKE 1 TABLET BY MOUTH EVERY DAY 05/09/2021 05/09/2021 Inactive Wellbutrin XL 300 mg 24 hr tablet, extended release RxNorm: 196789 TAKE 1 TABLET BY MOUTH EVERY DAY 02/10/2021 05/10/2021 Inactive metoprolol succinate ER 25 mg tablet,extended release 24 hr RxNorm: 011567 TAKE 1 TABLET BY MOUTH EVERY DAY 02/09/2021 02/09/2021 Inactive buspirone 5 mg tablet RxNorm: 035928 TAKE 1 TABLET BY MOUTH THR EE TIMES DAILY 02/09/2021 02/09/2021 Inactive Wellbutrin XL 300 mg 24 hr tablet, extended release RxNorm: 845671 TAKE 1 TABLET BY MOUTH EVERY DAY 02/09/2021 02/09/2021 Inactive metformin 500 mg tablet RxNorm: 973880 TAKE 1 TABLET BY MOUTH T WICE DAILY 02/09/2021 07/12/2021 Inactive triamcinolone acetonide 0.025 % topical cream RxNorm: 521703 4 1 Application Topical two times a day 07/13/2020 No Stop Date Active ketoconazole 2 % topical cream RxNorm: 122659 1 Applica tion Topical two times a day 07/13/2020 No Stop Date Active metoprolol succinate ER 25 mg tablet,extended release 24 hr RxNorm: 382837 1 Tablet(s) Oral every day 01/18/2020 01/12/2021 Inactive metformin 500 mg tablet RxNorm: 484221 1 Tablet(s) Oral two jaleesa es a day 01/18/2020 01/12/2021 Inactive Wellbutrin XL 300 mg 24 hr tablet, extended release RxNorm: 897670 1 Tablet(s) Oral every day 01/18/2020 01/12/2021 Inactive buspirone 5 mg tablet RxNorm: 934366 1 Tablet(s) Oral three jaleesa es a day 01/18/2020 01/12/2021 Inactive metoprolol succinate ER 25 mg tablet,extended release 24 hr RxNorm: 599761 1 Tablet(s) Oral every day 01/13/2020 01/17/2020 Inactive metformin 500 mg tablet RxNorm: 521091 1 Tablet(s) Oral two jaleesa es a day 01/13/2020 01/17/2020 Inactive Wellbutrin XL 300 mg 24 hr tablet, extended release RxNorm: 721381 1 Tablet(s) Oral every day 01/13/2020 01/17/2020 Inactive buspirone 5 mg tablet RxNorm: 618349 1 Tablet(s) Oral three jaleesa es a day 01/13/2020 01/17/2020 Inactive doxycycline hyclate 100 mg capsule RxNorm: 5804775 1 Cap mirta(s) Oral two times a day 11/25/2019 12/05/2019 Inactive Tamiflu 75 mg capsule RxNorm: 390784 1 Capsule(s) Oral two time s a day 11/25/2019 11/30/2019 Inactive triamcinolone acetonide 0.025 % topical cream RxNorm: 981225 4 1 Application Topical two times a day 07/14/2019 01/12/2020 Inactive buspirone 5 mg tablet RxNorm: 410857 1 Tablet(s) Oral three jaleesa es a day 07/14/2019 08/13/2019 Inactive Wellbutrin XL 300 mg 24 hr tablet, extended release RxNorm: 697118 1 Tablet(s) Oral every day 07/14/2019 01/12/2020 Inactive metformin 500 mg tablet RxNorm: 830583 1 Tablet(s) Oral two jaleesa es a day 07/14/2019 01/12/2020 Inactive metoprolol succinate ER 25 mg tablet,extended release 24 hr RxNorm: 867714 1 Tablet(s) PO daily 04/28/2019 01/12/2020 Inactive metformin 500 mg tablet RxNorm: 014847 1 Tablet(s) PO daily 019 07/13/2019 Inactive Wellbutrin SR 150 mg tablet, 12 hr sustained-release RxNorm: 393868 1 Tablet(s) PO BID 04/28/2019 07/10/2019 Inactive bupropion HCl 75 mg tablet RxNorm: 904379 1 Tablet(s) PO BID 201804/21/2019 Inactive B12 sublingual RxNorm: 31649 sublingual 03/31/2019 Active Vitamin D (with calcium) oral RxNorm: 449381 oral 03/31/2019 Active Multivitamin 50 Plus oral RxNorm: 41160 oral 03/31/2019 Active magnesium RxNorm: 1 Tablet(s) PO daily 03/31/2019 Active biotin oral RxNorm: 1588 oral 03/31/2019 Active Medication Administered No Medication Administered data Immunizations No Immunization data Results Observation Observation Code Item Item Code Result Date S ervice Location Comp Metabolic Kif761 NA 138 mEq/L 07/07/2021 Unkn own Comp Metabolic Ztn436 K 4.1 mEq/L 07/07/2021 Unkn own Comp Metabolic Lkv240 CL 101 mEq/L 07/07/2021 Unkn own Comp Metabolic Fmm668 CO2 29.0 mEq/L 07/07/2021 Unk nown Comp Metabolic Sxw224 ANION GAP 12 07/07/2021 Unkn own Comp Metabolic Kfb551 GLUCOSE 171 mg/dL 07/07/2021 Unkn own Comp Metabolic Fnb601 Creat 0.9 mg/dL 07/07/2021 Unkn own Comp Metabolic Aom133 eGFR 70 ml/min/1.73m2 07/07/20 21 Unknown Comp Metabolic Bwd546 BUN 13 mg/dL 07/07/2021 Unkn own Comp Metabolic Qix040 B/C Ratio 14.8 Ratio 07/07/2021 Unk nown Comp Metabolic Osl241 CALCIUM 9.0 mg/dL 07/07/2021 Unkn own Comp Metabolic Bxl737 ALK PHOS 102 U/L 07/07/2021 Unkn own Comp Metabolic Rbp723 AST(SGOT) 20 U/L 07/07/2021 Unkn own Comp Metabolic Ojy199 ALT(SGPT) 18 U/L 07/07/2021 Unkn own Comp Metabolic Itz314 BILI T 0.7 mg/dL 07/07/2021 Unkn own Comp Metabolic Mog999 ALBUMIN 4.1 g/dL 07/07/2021 Unkn own Comp Metabolic Wig120 TPRO 6.7 g/dL 07/07/2021 Unkn own Comp Metabolic Ktr009 GLOB 2.6 g/dL 07/07/2021 Unkn own Comp Metabolic Zme436 A/G Ratio 1.6 Ratio 07/07/2021 Unkn own Comp Metabolic Tew725 Osmo 280 mOsmo 07/07/2021 Unkn own Cbc With Differential Ord2 WBC 6.42 K/ul 07/06/20 Unknown Cbc With Differential Ord2 RBC 4.63 M/ul 07/06/20 Unknown Cbc With Differential Ord2 HGB 13.2 g/dl 07/06/20 Unknown Cbc With Differential Ord2 Neut% 61.9 % 07/06/20 Unknown Cbc With Differential Ord2 HCT 40.9 % 07/06/20 Unknown Cbc With Differential Ord2 MCV 88.3 fl 07/06/20 Unknown Cbc With Differential Ord2 Lymph% 29.0 % 07/06/20 Unknown Cbc With Differential Ord2 MCH 28.5 pg 07/06/20 Unknown Cbc With Differential Ord2 [place]% 6.2 % 07/06/20 Unknown Cbc With Differential [...] K/ul 021 Unknown Cbc With Differential Ord2 [place] ABS# 0.4 K/ul 07/06/20 Unknown Cbc With [...] IS) 3.85 uIU/mL 07/06/2021 Unkn own %Hba1C Oup291 % HbA1c 04376-4 8.1 % 07/06/2021 Unknown %Hba1C Ymr520 Gluc Ave 186 mg/dL 07/06/2021 Unknown %Hba1C Fjn512 % HbA1c 94996-5 6.6 % 07/07/2020 Unknown %Hba1C Lev477 Gluc Ave 143 mg/dL 07/07/2020 Unknown Comp Metabolic Fgy879 NA 138 mEq/L 07/07/2020 Unkn own Comp Metabolic Ttp222 K 3.9 mEq/L 07/07/2020 Unkn own Comp Metabolic Dvu419 CL 101 mEq/L 07/07/2020 Unkn own Comp Metabolic Oxr972 CO2 29.0 mEq/L 07/07/2020 Unk nown Comp Metabolic Dqf965 ANION GAP 12 07/07/2020 Unkn own Comp Metabolic Fsy465 GLUCOSE 127 mg/dL 07/07/2020 Unkn own Comp Metabolic Ljl780 Creat 0.8 mg/dL 07/07/2020 Unkn own Comp Metabolic Ysp689 eGFR 75 ml/min/1.73m2 07/07/20 20 Unknown Comp Metabolic Alu214 BUN 12 mg/dL 07/07/2020 Unkn own Comp Metabolic Yrw494 B/C Ratio 14.5 Ratio 07/07/2020 Unk nown Comp Metabolic Fpk931 CALCIUM 9.7 mg/dL 07/07/2020 Unkn own Comp Metabolic Kiq905 ALK PHOS 103 U/L 07/07/2020 Unkn own Comp Metabolic Iea474 AST(SGOT) 16 U/L 07/07/2020 Unkn own Comp Metabolic Upf693 ALT(SGPT) 16 U/L 07/07/2020 Unkn own Comp Metabolic Yfo624 BILI T 0.9 mg/dL 07/07/2020 Unkn own Comp Metabolic Wkk643 ALBUMIN 4.0 g/dL 07/07/2020 Unkn own Comp Metabolic Zhf357 TPRO 6.6 g/dL 07/07/2020 Unkn own Comp Metabolic Gdw891 GLOB 2.6 g/dL 07/07/2020 Unkn own Comp Metabolic Mgb265 A/G Ratio 1.5 Ratio 07/07/2020 Unkn own Comp Metabolic Ykt874 Osmo 277 mOsmo 07/07/2020 Unkn own Tsh Ord6 TSH (3rd IS) 2.43 uIU/mL 07/07/2020 Unkn own Lipid Ord30 CHOL 213 mg/dL 07/07/2020 Unknown Lipid Ord30 HDL 61.0 mg/dl 07/07/2020 Unknown Lipid Ord30 TRIG 134 mg/dL 07/07/2020 Unknown Lipid Ord30 LDL 125 mg/dL 07/07/2020 Unknown Lipid Ord30 C/HDL 3.5 Ratio 07/07/2020 Unknown Cbc With Differential Ord2 WBC 5.38 K/ul 10/22/20 20 Unknown Cbc With Differential Ord2 RBC 4.51 [...] pg 07/07/20 Unknown Cbc With Differential Ord2 [place]% 4.8 % 07/07/20 Unknown Cbc With Differential [...] K/ul 020 Unknown Cbc With Differential Ord2 [place] ABS# 0.3 K/ul 07/07/20 Unknown Cbc With Differential Ord2 Eos ABS# 0.1 K/ul 07/07/20 Unknown Cbc With Differential Ord2 Baso ABS# 0.0 K/ul 07/07/20 Unknown Comp Metabolic Ezf096 NA 140 mEq/L 07/07/2019 Unkn own Comp Metabolic Gab768 K 3.9 mEq/L 07/07/2019 Unkn own Comp Metabolic Oui216 CL 102 mEq/L 07/07/2019 Unkn own Comp Metabolic Eqm926 CO2 30.0 mEq/L 07/07/2019 Unk nown Comp Metabolic Ltk221 ANION GAP 12 07/07/2019 Unkn own Comp Metabolic Vqu407 GLUCOSE 150 mg/dL 07/07/2019 Unkn own Comp Metabolic Sum658 Creat 0.8 mg/dL 07/07/2019 Unkn own Comp Metabolic Dap667 eGFR 79 ml/min/1.73m2 07/07/20 19 Unknown Comp Metabolic Wfz963 BUN 12 mg/dL 07/07/2019 Unkn own Comp Metabolic Gcv103 B/C Ratio 15.0 Ratio 07/07/2019 Unk nown Comp Metabolic Hnw923 CALCIUM 9.4 mg/dL 07/07/2019 Unkn own Comp Metabolic Jak319 ALK PHOS 114 U/L 07/07/2019 Unkn own Comp Metabolic Mqz001 AST(SGOT) 20 U/L 07/07/2019 Unkn own Comp Metabolic Juo368 ALT(SGPT) 18 U/L 07/07/2019 Unkn own Comp Metabolic Cff390 BILI T 1.0 mg/dL 07/07/2019 Unkn own Comp Metabolic Bfc258 ALBUMIN 4.0 g/dL 07/07/2019 Unkn own Comp Metabolic Mst682 TPRO 6.5 g/dL 07/07/2019 Unkn own Comp Metabolic Qkl712 GLOB 2.5 g/dL 07/07/2019 Unkn own Comp Metabolic Ano751 A/G Ratio 1.6 Ratio 07/07/2019 Unkn own Comp Metabolic Bjk448 Osmo 282 mOsmo 07/07/2019 Unkn own %Hba1C Mpz685 % HbA1c 38115-7 7.4 % 07/07/2019 Unknown %Hba1C Kza599 Gluc Ave 166 mg/dL 07/07/2019 Unknown Cbc [...] 03/31/20 19 Unknown Cbc With Differential Ord2 [place]% 5.8 % 03/31/20 19 Unknown Cbc With [...] K/ul 019 Unknown Cbc With Differential Ord2 [place] ABS# 0.3 K/ul 03/31/20 19 Unknown Cbc [...] 2.93 uIU/mL 03/31/2019 Unkn own Comp Metabolic Fzb069 NA 138 mEq/L 03/31/2019 Unkn own Comp Metabolic Nrd552 K 4.1 mEq/L 03/31/2019 Unkn own Comp Metabolic Pia776 CL 100 mEq/L 03/31/2019 Unkn own Comp Metabolic Tqe544 CO2 31.0 mEq/L 03/31/2019 Unk nown Comp Metabolic Rpz863 ANION GAP 11 03/31/2019 Unkn own Comp Metabolic Lgv107 GLUCOSE 157 mg/dL 03/31/2019 Unkn own Comp Metabolic Vgs946 Creat 0.7 mg/dL 03/31/2019 Unkn own Comp Metabolic Jgd108 eGFR 89 ml/min/1.73m2 03/31/20 19 Unknown Comp Metabolic Jtv950 BUN 11 mg/dL 03/31/2019 Unkn own Comp Metabolic Hgx683 B/C Ratio 15.3 Ratio 03/31/2019 Unk nown Comp Metabolic Aec422 CALCIUM 9.4 mg/dL 03/31/2019 Unkn own Comp Metabolic Ipa656 ALK PHOS 113 U/L 03/31/2019 Unkn own Comp Metabolic Teq753 AST(SGOT) 19 U/L 03/31/2019 Unkn own Comp Metabolic Qln608 ALT(SGPT) 19 U/L 03/31/2019 Unkn own Comp Metabolic Zkm188 BILI T 1.1 mg/dL 03/31/2019 Unkn own Comp Metabolic Zrc028 ALBUMIN 4.0 g/dL 03/31/2019 Unkn own Comp Metabolic Pgy908 TPRO 6.5 g/dL 03/31/2019 Unkn own Comp Metabolic Qqr441 GLOB 2.5 g/dL 03/31/2019 Unkn own Comp Metabolic Wkp847 A/G Ratio 1.6 Ratio 03/31/2019 Unkn own Comp Metabolic Jhk539 Osmo 278 mOsmo 03/31/2019 Unkn own %Hba1C Aja890 % HbA1c 32630-1 7.9 % 03/31/2019 Unknown %Hba1C Dmt126 Gluc Ave 180 mg/dL 03/31/2019 Unknown Procedures No Procedures data Vital Signs Date Vital 07/13/2021 Blood Pressure 1: 140/94 Code: 8480-6 BMI: 46.8 Code: 54847-5 Heart Rate 1: 68 bpm Height: 5'5" Code: 8302-2 Respiratory Rate: 18 bpm SpO2: 98% Temperature: 36.2 (C) / 97.2 (F) Weight: 281 lbs Code: 19836-8 07/13/2020 Blood Pressure 1: 142/88 Code: 8480-6 BMI: 43.9 Code: 85369-2 Heart Rate 1: 86 bpm Height: 5'5" Code: 8302-2 SpO2: 98% Temperature: 3 6.9 (C) / 98.4 (F) Weight: 264 lbs Code: 09880-8 01/13/2020 Blood Pressure 1: 124/80 Code: 8480-6 BMI: 43.9 Code: 18313-8 Heart Rate 1: 75 bpm Height: 5'5" Code: 8302-2 SpO2: 96% Temperature: 3 6.6 (C) / 97.8 (F) Weight: 264 lbs Code: 78411-1 11/25/2019 Blood Pressure 1: 150/78 Code: 8480-6 BMI: 44.6 Code: 36252-6 Heart Rate 1: 80 bpm Height: 5'5" Code: 8302-2 SpO2: 95% Temperature: 3 6.6 (C) / 97.8 (F) Weight: 268 lbs Code: 77493-9 07/14/2019 Blood Pressure 1: 146/82 Code: 8480-6 BMI: 46.6 Code: 45481-5 Heart Rate 1: 75 bpm Height: 5'5" Code: 8302-2 SpO2: 97% Weight: 280 lb s Code: 37003-6 04/28/2019 Blood Pressure 1: 142/82 Code: 8480-6 BMI: 46.6 Code: 77479-0 Heart Rate 1: 88 bpm Height: 5'5" Code: 8302-2 SpO2: 97% Weight: 280 lb s Code: 12438-5 03/31/2019 Blood Pressure 1: 144/90 Code: 8480-6 BMI: 46.9 Code: 54355-8 Heart Rate 1: 82 bpm Height: 5'5" Code: 8302-2 SpO2: 98% Weight: 282 lb s Code: 71497-2 Functional Status No Functional Status data Reason For Visit Reason For Visit Effective Dates Notes well woman exam (40-65 years) 07/13/2021 depression 07/13/2020 depression 01/13/2020 fever 11/25/2019 depression 07/14/2019 depression 04/28/2019 depression 03/31/2019 Encounters Encounter Performer Location Codes Date (04051) PREV VISIT EST AGE 40-64 Diagnosis: Encounter for general adult medical examination with abnormal findings[ICD10: Z00.01] Marlys Miller MD, [facility] CPT-4: 54420 07/13/2021 71559 EST. PATIENT, LEVEL IV Diagnosis: Essential (primary) hypertension[ICD10: I10] Diagnosis: Type 2 diabetes mellitus without complications[ICD10: E11.9] Diagnosis: Change in mole[ICD10: D22.9] Diagnosis: Restless leg syndrome[ICD10: G25.81] Noemí Miller MD, [facility] CPT-4: 02143 07/13/2020 16485 EST. PATIENT, LEVEL III Diagnosis: Generalized anxiety disorder[ICD10: F41.1] Diagnosis: Major depressive disorder, single episode, moderate[ICD10: F32.1] Diagnosis: Essential (primary) hypertension[ICD10: I10] Diagnosis: Type 2 diabetes mellitus without complications[ICD10: E11.9] [facility] CPT-4: 62093 01/13/2020 19273 EST. PATIENT, LEVEL III Diagnosis: Influenza[ICD10: J11.1] Diagnosis: Cellulitis of right leg[ICD10: L03.115] Noemí Miller MD, [facility] CPT-4: 59484 11/25/2019 48849 EST. PATIENT, LEVEL IV Diagnosis: Generalized anxiety disorder[ICD10: F41.1] Diagnosis: Major depressive disorder, single episode, moderate[ICD10: F32.1] Diagnosis: Type 2 diabetes mellitus without complications[ICD10: E11.9] Diagnosis: Essential (primary) hypertension[ICD10: I10] [facility] CPT-4: 82880 07/14/2019 97019 EST. PATIENT, LEVEL IV Diagnosis: Generalized anxiety disorder[ICD10: F41.1] Diagnosis: Major depressive disorder, single episode, moderate[ICD10: F32.1] Diagnosis: Type 2 diabetes mellitus without complications[ICD10: E11.9] Diagnosis: Essential (primary) hypertension[ICD10: I10] [facility] CPT-4: 82303 04/28/2019 OFFICE VISIT, NEW - LEVEL 4 Diagnosis: Essential (primary) hypertension[ICD10: I10] Diagnosis: Type 2 diabetes mellitus without complications[ICD10: E11.9] Diagnosis: Generalized anxiety disorder[ICD10: F41.1] Diagnosis: Major depressive disorder, single episode, moderate[ICD10: F32.1] Diagnosis: Other obesity due to excess calories[ICD10: E66.09] [facility] CPT-4: 20229 03/31/2019 Plan of Care Planned Activity Notes Codes Status Date Appointment: Noemí Landeros WPtel: [address] [place], [place] [id number] (30 min) Complex 07/14/2021 Visit Plan: Well Adult - pt was counsele d about diet, exercise, and encouraged to follow a heart healthy diet and increase activity level. The patient was instructed to RTC yearly for well adult exams and PRN for acute illnesses. The pt was also instructed to have yearly labs for check of cholesterol, thyroid, chem panel, CBC, and renal functioning. Contractures and Trigger Finger of both hands - Referral to Dr. Johnson for bilateral hand weakness and development of trigger finger and contractures - left worse than right. Reflux - recommended a referral to Dr. Shah for an EGD 07/13/2021 Appointment: Marlys Miller WPtel[facility] ([facility] min) Moderate 07/13/2021 Patient Education: Patient Medication Summary Completed 07/13/2021 Patient Education: Patient Medication Summary Completed [...] less controlled. 07/13/2020 Appointment: Noemí Landeros WPtel[facility] ([facility] 07/13/2020 Patient Education: Patient Medication Summary Completed [...] less controlled. 01/13/2020 Appointment: Noemí Landeros WPtel: [phone] [id number] (30 min) Complex 01/13/2020 Patient Education: Patient [...] warmth, discharge. 11/25/2019 Appointment: Noemí Landeros WPtel: [phone] [facility] (30 min) Complex 11/25/2019 Patient Education: Patient Medication Summary Completed 11/25/2019 Care Plan: VASCULAR STUDY [facility] : [address]384- 0 Pending 11/25/2019 Visit Plan: Chronic Depression [...] Appointment: Noemí Landeros [facility] [phone] [facility] (30 min) Complex 07/14/2019 Patient Education: Patient [...] glucose control. 04/28/2019 Appointment: Noemí Landeros WPtel: [facility] ([facility] min) [facility] 04/28/2019 Patient Education: Patient Medication Summary Completed [...] Appointment: Noem[facility] Landeros [facility] [phone] [facility] New Patient 03/31/2019 Patient Education: Patient Medication Summary Completed 03/31/2019 Patient Education: Diabetes Completed 03/31/2019 Patient Education: Depression Completed 03/31/2019 Patient Education: Obesity Completed 0 03/31/2019 Instructions Comment . Well Adult - pt was counseled about di et, exercise, and encouraged to follow a heart healthy diet and increase activity level. The patient was instructed to RTC yearly for well adult exams and PRN for acute illnesses. The pt was also instructed to have yearly labs for check of cholesterol, thyroid, chem panel, CBC, and renal functioning. Contractures and Trigger Finger of both hands - Referral to Dr. Johnson for bilateral hand weakness and development of trigger finger and contractures - left worse than right. Reflux - recommended a referral to Dr. Shah for an EGD will send orders for mammogram - call [phone] to schedule - at [address] Get [...]
[2021-08-14] MEDS ORDERED: proPOfol 200 MG/20 ML (DIPRIVAN) VIAL IV ONE (07:42)
[2021-08-14] MEDS ORDERED: MIDAZOLAM 2 MG/2 ML (VERSED) VIAL ONE (07:42)
[2021-08-14 07:45] VITALS: BP 138/94
[2021-08-14] MEDS ORDERED: LACTATED RINGERS 1,000 ML IV STA (07:50)
[2021-08-14] MEDS ORDERED: HURRICAINE EXT TUBE (BENZOCAINE) XX PRN (08:00)
--- NOTE | 2021-08-14 08:27 | Progress Note-Pre Operative ---
Pre-Operative Progress Note H&P Reviewed The H&P was reviewed, patient examined and no changes noted. Time Seen by Provider: 08:22 Date H&P Reviewed: Aug 14, 2021 Time H&P Reviewed: 08:22 Pre-Operative Diagnosis: Chronic Gastritis ROLLY REINOSO DO Aug 14, 2021 08:27
[2021-08-14 09:10] VITALS: BP 112/59
--- NOTE | 2021-08-14 09:11 | Progress Note-Post Operative ---
Post-Operative Progess Note Surgeon (s)/Warp Drawer (s) Surgeon ROLLY REINOSO DO Warp Drawer: none Pre-Operative Diagnosis Chronic Gastritis Post-Operative Diagnosis Esophagitis Procedure & Operative Findings Date of Procedure 08/14/21 Procedure Performed/Findings EGD with bx PROCEDURE NOTE: After informed consent was obtained, the patient was brought to the endoscopy suite, placed in bed in left lateral decubitus position. She was administered IV sedation by the RESPIRATORY PRACTITIONER who then monitored vitals the entire time, heart rate, blood pressure and pulse ox and the scope was inserted down the mouth through the esophagus into the stomach. On the way down, did not see any esophagitis, pushed into the stomach and could see the Ivette Nette anastomosis. Looked at both limbs of the small intestine and they looked good. Pulled back and did a biopsy of the body of the stomach. Retroflexed the scope, no hiatal hernia seen; took a picture. Next pulled the scope into the GE junction, saw some very minimal creeping up of the Z-line and then did a biopsy of the GE junction. Pushed the scope back into the stomach, suctioned all the air out of the stomach. At this point pulled the scope up the esophagus and out the mouth. The patient tolerated the procedure, and she recovered in endoscopy suite. Anesthesia Type IV sedation by RESPIRATORY PRACTITIONER Estimated Blood Loss Estimated blood loss (mL): scant Specimens/Packing Specimens Removed body of stomach bx GE jxn bx ROLLY REINOSO DO Aug 14, 2021 09:11
--- NOTE | 2021-08-14 09:12 | Endoscopy Discharge Instruct ---
Endo Procedure/Findings Findings 1.: Other Findings (Minimal esophagitis) Discharge Instructions - Activity: You might feel a little sleepy until tomorrow. This is due to the medicine you received to relax you. Until tomorrow, you should: NOT drive a car, operate machinery or power tools. NOT drink any alcoholic beverages. NOT make any important decisions or sign importortant papers. Do not return to work until tomorrow, unless otherwise instructed. Resume previous activities tomorrow. Diet: Start by taking liquids. If you tolerate liquids, advance to solid food. 1.: EGD in 3 years Notify Physician - If you experience excessive bleeding, unusual abdominal pain, fever, or chest pain, contact your doctor immediately. ROLLY REINOSO DO Aug 14, 2021 09:12
[2021-08-14 09:15] VITALS: BP 103/77
[2021-08-14 09:40] VITALS: BP 127/71
[2021-08-14 09:46] VITALS: BP 127/71
--- NOTE | 2021-08-14 10:18 | Anesthesia-General Post-Op ---
MAC Patient Condition Mental Status/LOC: Same as Preop Cardiovascular: Satisfactory Nausea/Vomiting: Absent Respiratory: Satisfactory Pain: Controlled Complications: Absent Post Op Complications Complications None Follow Up Care/Instructions Patient Instructions None needed. Anesthesiology Discharge Order Discharge Order Patient is doing well, no complaints, stable vital signs, no apparent adverse anesthesia problems. No complications reported per nursing. 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
== END 2021-08-14 11:10 | disposition home or self-care (01) ==
LOC: ENDO 07:27
PROVIDERS: ATTEND Surgery
DX: K29.50 Unspecified chronic gastritis without bleeding (principal); K21.00 Gastro-esophageal reflux disease with esophagitis, without bleeding; K22.10 Ulcer of esophagus without bleeding; I10 Essential (primary) hypertension; E11.9 Type 2 diabetes mellitus without complications; E66.9 Obesity, unspecified; F32.A Depression, unspecified; Z79.84 Long term (current) use of oral hypoglycemic drugs; Z79.899 Other long term (current) drug therapy; Z98.84 Bariatric surgery status; Z68.42 Body mass index [BMI] 45.0-49.9, adult

== ENCOUNTER → 2021-08-18 | Outpatient (CLI) | payer BC | LOC: LABNPT 06:44 | PROVIDERS: ATTEND Emergency Medicine | DX: Z20.822 Contact with and (suspected) exposure to COVID-19 (principal) | CPT/HCPCS: 87635 ==

== ENCOUNTER → 2021-09-01 | Outpatient (CLI) | payer BC | LOC: LABNPT 06:49 | PROVIDERS: ATTEND Emergency Medicine | DX: Z01.812 Encounter for preprocedural laboratory examination (principal); Z20.822 Contact with and (suspected) exposure to COVID-19 | CPT/HCPCS: 87635 ==